=== PATIENT | female | born 1940 | race Caucasian/White ===

== ENCOUNTER 2024-12-09 19:06 | Inpatient (IN) | payer OTHER, SELFPAY ==
[2024-12-09] VITALS (19 sets, daily range): BP systolic 100–168; BP diastolic 58–96; BMI 15.0
[2024-12-09 11:12] LABS: % Basophils 0.4 % (0-2); % Eosinophils 1.1 % (0-6); % Immature Granulocytes 0.2 % (0-0.5); % Lymphocytes 9.4 % (20.5-51.1); % Monocytes 6.5 % (1.7-9.3); % Neutrophils 82.4 % (42.2-75.2); Absolute Eosinophils 0.1 10^3/uL (0-0.7); Absolute Lymphocytes 0.9 10^3/uL (1.2-3.4); Absolute Monocytes 0.6 10^3/uL (0.1-0.6); Absolute Neutrophils 7.9 10^3/uL (1.4-6.5); Hematocrit 41.2 % (37.0-47.0); Hemoglobin 12.8 g/dL (12.0-16.0); Mean Corp Hgb Conc. 31.1 g/dL (33.0-37.0); Mean Corpuscular Hgb 27.5 pg (27.0-31.0); Mean Corpuscular Volume 88.4 fL (81.0-99.0); Mean Platelet Volume 9.9 fL (7.4-10.4); Nucleated Red Blood Cells % 0 %; Platelet Count 276 10^3/uL (130-400); Red Blood Cell Count 4.66 10^6/uL (4.20-5.40); Red Cell Dist. Width 14.6 % (11.5-14.5); White Blood Cell Count 9.6 10^3/uL (4.8-10.8)
--- NOTE | 2024-12-09 11:20 | ED.GENMED ---
History of Present Illness
General
Chief Complaint: Weakness
Source: patient
Exam Limitations: none
Time Seen by Provider: 12/09/24 10:55
Nursing documentation reviewed up to this point in time: agreed with
Past History
Past History
ED Past Medical History: CHF, COPD, HTN, Hypercholesterolemia, Renal failure (Chronic kidney disease stage IIIa), Psychiatric (Depression) and Other (Glaucoma, chronic back pain, chronic transaminitis, Eczema, Vit- D def, )
ED Past Surgical History: Other (Skin grafts, )
Social History
Tobacco: Former smoker
Alcohol: None
Drug: None
Personal:
Living: alone
Employment: Retired
Family History
Family History: Other (Noncontributory)
Course
Orders/Labs/Results
Orders:
Orders
12/09/24 11:01
Electrocardiogram (*1) Urgent
Reason for Study: Other
Other Reason for Exam: Respiratory Distress
EKG- Treatment ONCE
12/09/24 11:03
COVID-19 Antigen Urgent
Source: Nasal Swab
Complete Blood Count/With Diff Urgent
Comprehensive Metabolic Panel Urgent
Influenza A+B Rapid Molecular Urgent
SEE Source: Nasal Swab
Specimen Description:
12/09/24 11:16
NT-proBNP Urgent
Troponin I Urgent
Abnormal Lab Results
12/09/24
11:03
MCHC 31.1 L g/dL
(33.0-37.0)
RDW 14.6 H %
(11.5-14.5)
Absolute Neuts (auto) 7.9 H 10^3/uL
(1.4-6.5)
Absolute Lymphs (auto) 0.9 L 10^3/uL
(1.2-3.4)
Neutrophils % 82.4 H %
(42.2-75.2)
Lymphocytes % 9.4 L %
(20.5-51.1)
12/09/24 11:03
Vital Signs
Initial and Last Documented VS:
Initial Vital Signs
Temp Pulse Resp BP Pulse Ox
98.5 F 95 32 154/82 91
12/09/24 10:52 12/09/24 10:52 12/09/24 10:52 12/09/24 10:52 12/09/24 10:52
Last Documented Vital Signs
Temp Pulse Resp BP Pulse Ox
98.5 F 95 32 154/82 93
12/09/24 10:52 12/09/24 10:52 12/09/24 10:52 12/09/24 10:52 12/09/24 10:52
ED Attending Note
-
Portions of this chart may have been created with voice recognition software.� Occasional wrong word or��sound alike� substitutions may have occurred due to the inherent limitations of voice recognition software.
Discharge Plan
Departure
Prescriptions:
No Action
tramadol 50 MG tablet
1 tab PO Q8H PRN (Reason: moderate pain)
acetaminophen [Tylenol Extra Strength] 500 MG tablet
500 mg PO Q6H PRN (Reason: MILD PAIN)
Prolia 60 MG/ML syringe
60 mg SQ Q6M
Patient Comments:
04/27/21; ss- pt last received in February 2021.
atorvastatin 10 MG tablet
10 mg PO QPM
brimonidine [Alphagan P] 1 DROP drops
1 drp BOTH EYES BID
cholecalciferol (vitamin D3) 1,000 UNITS tablet
1,000 units PO DAILY
nitroglycerin 0.4 MG tablet, sublingual
0.4 mg sublingual [id number] PRN (Reason: CP, SOB) Qty: 10 0RF
metoprolol succinate 25 MG tablet extended release 24 hr
25 mg PO BID Qty: 60 0RF
potassium chloride 10 MEQ capsule, extended release
10 meq PO MOFR
furosemide 20 MG tablet
20 mg PO MOFR
timolol maleate 0.5 % drops
1 drp BOTH EYES BID
travoprost 0.004 % Drops
1 drp BOTH EYES HS
ipratropium bromide 42 mcg (0.06 %) spray,non-aerosol
1 spray INTRANASAL DAILY
calcium citrate-vitamin D3 250 mg-5 mcg (200 unit) Tablet
1 tab PO BID
hydralazine 25 mg tablet
25 mg PO TID PRN (Reason: sbp>160)
Referrals:
UNKNOWN - PT DOES,NOT KNOW [Family Provider] -
Interventions
Interventions:
*Risk Screen - Suicide Last Done: 12/09/24 10:52
*General Assessment Last Done: 12/09/24 10:52
*Neglect/Abuse Screening Last Done: 12/09/24 10:52
*ED- Fall Risk Assessment Last Done: 12/09/24 10:52
ED- Pulmonary Assessment Last Done: 12/09/24 10:52
Discharge Date and Time
Print Language: FRISIAN
[2024-12-09 11:25] LABS: ALT (SGPT) 22 U/L (0-35); AST (SGOT) 34 U/L (14-36); Albumin 3.8 g/dl (3.5-5.0); Alkaline Phosphatase 113 U/L (38-126); Blood Urea Nitrogen 36 mg/dl (7-17); Calcium 9.5 mg/dl (8.4-10.2); Carbon Dioxide 28 mmol/L (22-30); Chloride 105 mmol/L (98-107); Estimated Creatinine Clearance 26 ml/min; Glucose 98 mg/dl (70-99); Potassium 4.1 mmol/L (3.5-5.1); Sodium 143 mmol/L (135-145); Total Protein 7.9 g/dl (6.3-8.2); eGFR > 60.00
[2024-12-09 11:27] LABS: COVID-19 Antigen Negative (Negative)
[2024-12-09 12:06] LABS: NT-proBNP 3800 pg/ml; Troponin I < 0.012 ng/ml
--- NOTE | 2024-12-09 12:10 | ED.GENMED ---
History of Present Illness
General
Chief Complaint: Weakness
Source: patient
Exam Limitations: none
Time Seen by Provider: 12/09/24 10:55
History of Present Illness
History of Present Illness:
84-year-old female presents from home where she lives by herself with complaints of generalized weakness and progressive decline worsening over the past week. She saw her family doctor yesterday and were advised to come here for dehydration. She
notes appetite she has not had anything to eat in several days. She states she is losing weight. No fever. She does note some shortness of breath. No other complaints at this time
Past History
Past History
ED Past Medical History: CHF, COPD, HTN, Hypercholesterolemia, Renal failure (Chronic kidney disease stage IIIa), Psychiatric (Depression) and Other (Glaucoma, chronic back pain, chronic transaminitis, Eczema, Vit- D def, )
ED Past Surgical History: Other (Skin grafts, )
Social History
Tobacco: Former smoker
Alcohol: None
Drug: None
Personal:
Living: alone
Employment: Retired
Family History
Family History: Other (Noncontributory)
Phy Exam
Physical Exam
Physical Exam:
General: Cachectic appearing female no acute respiratory distress
HEENT: Normocephalic atraumatic mucosa dry
Heart: Regular rate and rhythm
Lungs: Clear no wheeze
Abdomen is soft nontender
Extremities: No cyanosis
Course
Orders/Labs/Results
Orders:
Orders
12/09/24 11:01
Electrocardiogram (*1) Urgent
Reason for Study: Other
Other Reason for Exam: Respiratory Distress
EKG- Treatment ONCE
12/09/24 11:03
COVID-19 Antigen Urgent
Source: Nasal Swab
Complete Blood Count/With Diff Urgent
Comprehensive Metabolic Panel Urgent
Influenza A+B Rapid Molecular Urgent
SEE Source: Nasal Swab
Specimen Description:
12/09/24 11:36
NT-proBNP Urgent
Troponin I Urgent
12/09/24 12:07
0.9% Sodium Chloride 1000 ml [Nss] 1,000 ml IV BOLUS
CR Chest - 2 Views Urgent
Comment:
Reason For Exam: weakness
12/09/24 14:45
Urinalysis Reflex To Culture Urgent
Date Specimen was Collected: 12/09/24
Time Specimen was Collected: 14:43
Urine Microscopic Reflex Cult Urgent
Urine Culture Urgent
SEE Source: U
Specimen Description:
Date Specimen was Collected: 12/09/24
Time Specimen was Collected: 14:43
Abnormal Lab Results
12/09/24 12/09/24
11:03 14:45
MCHC 31.1 L g/dL
(33.0-37.0)
RDW 14.6 H %
(11.5-14.5)
Absolute Neuts (auto) 7.9 H 10^3/uL
(1.4-6.5)
Absolute Lymphs (auto) 0.9 L 10^3/uL
(1.2-3.4)
Neutrophils % 82.4 H %
(42.2-75.2)
Lymphocytes % 9.4 L %
(20.5-51.1)
BUN 36 H mg/dl
(7-17)
Urine Ketones 2+ A
(Negative)
Leukocyte Esterase Rfl 2+ A
(Negative)
Urine WBC (Reflex) 16-20 A /HPF
(0-5)
Urine Albumin (Reflex) 2+ A
(Neg - Trace)
12/09/24 11:03
12/09/24 11:03
Vital Signs
Initial and Last Documented VS:
Initial Vital Signs
Temp Pulse Resp BP Pulse Ox
98.5 F 95 32 154/82 91
12/09/24 10:52 12/09/24 10:52 12/09/24 10:52 12/09/24 10:52 12/09/24 10:52
Last Documented Vital Signs
Temp Pulse Resp BP Pulse Ox
98.5 F 89 19 168/89 95
12/09/24 10:52 12/09/24 15:15 12/09/24 15:15 12/09/24 15:00 12/09/24 14:45
MDM/Problems Addressed
Differential Diagnosis Includes:
Generalized weakness. Differential could include anemia versus electrolyte abnormality versus dehydration versus infectious source such as COVID flu pneumonia or UTI.
EKG shows sinus rhythm with PVCs. Will check labs. Fluids ordered. Chest x-ray urinalysis pending.
*Critical Care Note
Total Time (30-74mins, 75-104mins- exclusive of procedures): Not Applicable
Update Note
Update Note:
Daughter now in room. She describes patient has declined over the past week. She is lost 5 pounds. She is cachectic. She looks dehydrated on exam noted to be hypoxic in the room now on 2 L. X-ray read as potential early CHF. May benefit from
PT evaluation case management potential placement.
ED Attending Note
-
Portions of this chart may have been created with voice recognition software.� Occasional wrong word or��sound alike� substitutions may have occurred due to the inherent limitations of voice recognition software.
Discharge Plan
Departure
Patient Disposition: Admit
Date of Disposition: 12/09/24
Time of Disposition: 15:40
Presentation/result/management discussed w/ accepting MD/DO: Hospitalist
Discharge Problem:
Hypoxia, Acute dehydration
Prescriptions:
No Action
tramadol 50 MG tablet
1 tab PO Q8H PRN (Reason: moderate pain)
acetaminophen [Tylenol Extra Strength] 500 MG tablet
500 mg PO Q6H PRN (Reason: MILD PAIN)
Prolia 60 MG/ML syringe
60 mg SQ Q6M
Patient Comments:
04/27/21; ss- pt last received in February 2021.
atorvastatin 10 MG tablet
10 mg PO QPM
brimonidine [Alphagan P] 1 DROP drops
1 drp BOTH EYES BID
cholecalciferol (vitamin D3) 1,000 UNITS tablet
1,000 units PO DAILY
nitroglycerin 0.4 MG tablet, sublingual
0.4 mg sublingual [id number] PRN (Reason: CP, SOB) Qty: 10 0RF
metoprolol succinate 25 MG tablet extended release 24 hr
25 mg PO BID Qty: 60 0RF
potassium chloride 10 MEQ capsule, extended release
10 meq PO MOFR
furosemide 20 MG tablet
20 mg PO MOFR
timolol maleate 0.5 % drops
1 drp BOTH EYES BID
travoprost 0.004 % Drops
1 drp BOTH EYES HS
ipratropium bromide 42 mcg (0.06 %) spray,non-aerosol
1 spray INTRANASAL DAILY
calcium citrate-vitamin D3 250 mg-5 mcg (200 unit) Tablet
1 tab PO BID
hydralazine 25 mg tablet
25 mg PO TID PRN (Reason: sbp>160)
Referrals:
UNKNOWN - PT DOES,NOT KNOW [Family Provider] -
Interventions
Interventions:
*Risk Screen - Suicide Last Done: 12/09/24 10:52
*General Assessment Last Done: 12/09/24 10:52
*Neglect/Abuse Screening Last Done: 12/09/24 10:52
*ED- Fall Risk Assessment Last Done: 12/09/24 10:52
ED- Cardiac Assessment Last Done: 12/09/24 11:31
ED- Neurological Assessment Last Done: 12/09/24 11:31
ED- Pulmonary Assessment Last Done: 12/09/24 10:52
Discharge Date and Time
Print Language: CHINESE
[2024-12-09] MEDS: NSS 1000 IV (12:16)
[2024-12-09 14:55] LABS: Urine Albumin 2+ (Neg - Trace); Urine Bilirubin Negative (Negative); Urine Character Clear (Clear); Urine Color Yellow; Urine Glucose Negative (Negative); Urine Ketone 2+ (Negative); Urine Leukocyte 2+ (Negative); Urine Nitrite Negative (Negative); Urine Occult Blood Negative (Negative); Urine Urobilinogen Negative (Neg - 1+)
[2024-12-09 15:05] LABS: Urine Amorphous Seen; Urine Squamous Cell >30 /LPF (Few)
[2024-12-09 15:06] LABS: Urine White Cell 16-20 /HPF (0-5)
[2024-12-09 15:07] LABS: Urine Red Blood Cell 0-2 /HPF (0-2)
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
[2024-12-09] MEDS: MUCINEX 600 MG PO (20:50)
[2024-12-09] MEDS: ALPHAGAN 0.2% EYE DROPS 1 DROP BOTH EYES (20:50)
[2024-12-09] MEDS: LASIX 40 MG IV (20:50)
[2024-12-09] MEDS: TIMOPTIC 0.5% OPHTHALMIC SOLUTION 1 DROP BOTH EYES (20:50)
[2024-12-09] MEDS: TOPROL XL 25 MG PO (20:50)
[2024-12-09] MEDS: REFRESH EYE DROPS (PF) 1 DROPS BOTH EYES (20:50)
[2024-12-09 21:19] LABS: Troponin I < 0.012 ng/ml
[2024-12-09] MEDS: TYLENOL 1000 MG PO (21:22)
[2024-12-09] MEDS: XALATAN OPHTHALMIC SOLUTION 1 DROP BOTH EYES (21:23)
[2024-12-10] VITALS (7 sets, daily range): BP systolic 103–155; BP diastolic 54–72; PULSE 74; O2SAT 94; BMI 14.8
[2024-12-10 03:55] LABS: Troponin I 0.012 ng/ml
--- NOTE | 2024-12-10 07:30 | W.PN.HOSP.TC ---
Today's Communication/Plan
-
Appreciate cardiology assessment�they do not believe that this patient is suffering from CHF exacerbation and instead believe that this patient is presenting with symptoms secondary to failure to thrive. The patient's extensive history of COPD with
smoking for many years and history of using home oxygen but being noncompliant and suspicion to possible interstitial fibrosis or ILD. Pulmonology consulted for further evaluation. Home O2 eval ordered.
Assessment / Plan
Assessment / Plan
Assessment/Plan:
-HFrecEF:
EF previously 45% on echo 08/20/22 now 55-60%
Her most recent echocardiogram showed that her left ventricular ejection fraction has normalized and she has mild to moderate mitral regurgitation
Her BNP is 3800 - this is the lowest it has ever been based on prior lab work
Lasix has been discontinued and cardiology recommends that the patient not be discharged on any diuretics
Continue metoprolol succinate
Continue remainder of antihypertensive medication regimen
-Failure to thrive: Unresolved
Patient visibly cachectic on physical exam in the emergency department
BMI 15.0
Poor skin turgor
Dietitian consulted
-COPD: Monitoring
Continue ipratropium bromide
Dextromethorphan�guaifenesin
Pulmonology consulted -the patient has a significant history of COPD, unsure if there is any interstitial fibrosis
Patient is not compliant with her home oxygen and this may have played a role in her progressive weakness and fatigue -Home O2 eval ordered
-Hyperlipidemia: Stable
Continue home medications
-Glaucoma:
Continue home medications
-<del>Acute</del> <del>CHF</del> <del>exacerbation</del>: Ruled out
Patient has a history of CHF and hypertension
Labs unremarkable except for an elevated proBNP at 3800
Crackles heard throughout the lungs on auscultation
Chest x-ray conducted in the emergency department shows a mildly enlarged heart with mild cephalization bilaterally
EKG shows nonspecific ST�T changes but nothing acute
Trending troponin
Appreciate cardiology recommendations�by cardiology assessment they do not believe that the patient's presentation correlates with acute CHF and instead believes that this is likely consistent with failure to thrive. They recommended discontinuing
any diuretics and to encourage oral intake.
Echocardiogram - EF previously 45% on echo 08/20/22 now 55-60%
Low-sodium diet
CODE STATUS: DNR
DVT Prophylaxis: SCDs
Imaging:
-Chest x-ray conducted on 12/09/2024:
Mild cephalization concerning for developing CHF. Clinical and laboratory correlation recommended. New Cardiomegaly. Stable-EKG conducted on 12/09/2024:
SINUS RHYTHM WITH OCCASIONAL PREMATURE VENTRICULAR COMPLEXES
MINIMAL VOLTAGE CRITERIA FOR LVH, MAY BE NORMAL VARIANT ( [place] product )
ST and T WAVE ABNORMALITY, CONSIDER LATERAL ISCHEMIA
PROLONGED QT
ABNORMAL ECG
WHEN COMPARED WITH ECG OF 06-SEP-2022 16:34,
NO SIGNIFICANT CHANGE WAS FOUND
Procedures: N/A
Anticipated Discharge: 24 - 48 hours
Subjective/Interval History
-
Date of Service: December 10, 2024
Met with patient at the bedside. She is extremely uncomfortable following her CT procedure. She struggles to lay on her back on the board of the CT machine due to her ongoing cachectic habitus and pressure wounds.
Objective Data
-
Labs:
Laboratory Results
12/10/24
07:28
WBC 7.9
Hgb 12.7
Hct 41.8
Plt Count 265
Sodium 143
Potassium 3.8
Chloride 101
Carbon Dioxide 37 H
BUN 27 H
Creatinine 1.0
Glucose 85
Calcium 9.0
Total Bilirubin 0.9
AST 28
ALT 18
Alkaline Phosphatase 103
Vital Signs:
Vital Signs
Temp Pulse Resp BP Pulse Ox
97.8 F 77 20 130/60 85
12/10/24 11:00 12/10/24 11:00 12/10/24 11:00 12/10/24 11:00 12/10/24 13:43
I&O
12/09/24 12/10/24 12/11/24
06:59 06:59 06:59
Intake Total 0 / 0
Balance 0 / 0
Review of Systems
-
History Source: Patient
Constitutional: Reports Fatigue and Weakness
EENT: Reports No Symptoms Reported
Respiratory: Reports Other (Short shallow breaths)
Cardiac: Reports No Symptoms
Abdomen/GI: Reports No Symptoms
Breast: Reports No Symptoms
Genitourinary: Reports No Symptoms
Musculoskeletal: Reports Muscle Pain and Muscle Stiffness
Skin: Reports No Symptoms
Neuro: Reports No Symptoms
Endocrine: Reports No Symptoms
Hematologic / Lymphatic: Reports No Symptoms
Allergy / Immunology: Reports No Symptoms
Physical Exam
-
General: Well Developed, No Apparent Distress, Pain, Appears Chronically Ill and Cachectic
HEENT: Normocephalic and Atraumatic
Respiratory: Decreased Breath Sounds (Decreased breath sounds bilaterally in the lung bases)
Cardiac: S1/S2; Negative Murmur or Rub
Breast: Deferred by me
GI: Soft, Nontender, Nondistended and Normal Bowel Sounds
Rectal: Deferred by Provider
Genito-urinary: Deferred by me
Musculoskeletal: No Clubbing, No Cyanosis and No Edema
Skin: Warm, Dry and Ulcers (Sacral/coccyx stage 2 pressure injury, Bilateral heel stage 1 pressure injury.); Negative Rash
Neuro: Awake, Alert, Oriented and AO x 3
Psych: Calm
[2024-12-10 07:54] LABS: Hematocrit 41.8 % (37.0-47.0); Hemoglobin 12.7 g/dL (12.0-16.0); Mean Corp Hgb Conc. 30.4 g/dL (33.0-37.0); Mean Corpuscular Hgb 27.5 pg (27.0-31.0); Mean Corpuscular Volume 90.5 fL (81.0-99.0); Platelet Count 265 10^3/uL (130-400); Red Blood Cell Count 4.62 10^6/uL (4.20-5.40); Red Cell Dist. Width 14.6 % (11.5-14.5); White Blood Cell Count 7.9 10^3/uL (4.8-10.8)
[2024-12-10 08:12] LABS: Troponin I 0.014 ng/ml
[2024-12-10 08:29] LABS: ALT (SGPT) 18 U/L (0-35); AST (SGOT) 28 U/L (14-36); Albumin 3.4 g/dl (3.5-5.0); Alkaline Phosphatase 103 U/L (38-126); Blood Urea Nitrogen 27 mg/dl (7-17); Carbon Dioxide 37 mmol/L (22-30); Chloride 101 mmol/L (98-107); Estimated Creatinine Clearance 23 ml/min; Glucose 85 mg/dl (70-99); Potassium 3.8 mmol/L (3.5-5.1); Sodium 143 mmol/L (135-145); Total Bilirubin 0.9 mg/dl (0.2-1.3); Total Protein 7.3 g/dl (6.3-8.2); eGFR 55.55
[2024-12-10 08:55] LABS: TSH Reflex To Free T4 2.86 uIU/ml (0.47-4.68)
[2024-12-10] MEDS: TIMOPTIC 0.5% OPHTHALMIC SOLUTION 1 DROP BOTH EYES ×2 (09:23→20:30)
[2024-12-10] MEDS: ALPHAGAN 0.2% EYE DROPS 1 DROP BOTH EYES ×2 (09:24→20:30)
[2024-12-10] MEDS: REFRESH EYE DROPS (PF) 1 DROPS BOTH EYES ×2 (09:25→20:30)
[2024-12-10] MEDS: LASIX 40 MG IV (09:26)
[2024-12-10] MEDS: DITROPAN 2.5 MG PO (09:28)
--- NOTE | 2024-12-10 09:29 | CON.CAR ---
Consultation
Consultation Request
Date/Time Consultation Requested: 12/10/2024
Date/Time Consultation Performed: 12/10/2024
Requesting Provider: Dr. Becker
Performing Provider: Dr. Vasquez
Reason for Consultation: CHF
Medical History
-
Chief Complaint: Weakness
History of Present Illness:
84-year-old female (previously known to Dr. 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
frequent PVCs, significant DJD with significant kyphosis/ambulatory dysfunction (walker assistance), cachexia, previous right pneumothorax after mechanical fall (03/10/23) presenting with weakness. Patient has been having decreased oral intake over
the past several weeks; Lasix was discontinued earlier this week by her PCP in response. Patient denies chest pain, shortness of breath, or palpitations.
Past Medical History
Past Medical History: Arrhythmias (PVCs), CHF (HFrEF 40%), HTN (severe labile HTN (recent BP has been low in office visit 90/50)), Valvular Disease (moderate MR) and Other (CKD)
Social History
Tobacco: Former Smoker
Alcohol: None
Personal: Single
Living: Alone
Family History
Family History: Reviewed & Not Pertinent
Allergies / Home Medications
Allergy/AdvReac Type Severity Reaction Status Date / Time
No Known Allergies Allergy Verified 12/09/24 10:52
�Medication �Instructions �Recorded �Confirmed �Type
acetaminophen 500 mg tablet 1,000 mg PO Q6HPRN PRN MILD PAIN 06/19/20 12/09/24 History
(Tylenol Extra Strength)
atorvastatin 10 mg tablet 10 mg PO QPM High cholesterol 06/23/20 12/09/24 History
denosumab 60 mg/mL subcutaneous 60 mg SQ [id number] bone health 06/23/20 12/09/24 History
syringe (Prolia)
cholecalciferol (vitamin D3) 25 1,000 units PO QPM bone health 04/27/21 12/09/24 History
mcg (1,000 unit) tablet
nitroglycerin 0.4 mg sublingual 0.4 mg sublingual [id number] PRN CP, 04/29/21 12/09/24 Rx
tablet SOB #10 tabs
metoprolol succinate 25 mg 25 mg PO BID #60 tabs 10/11/21 12/09/24 Rx
tablet,extended release 24 hr
timolol maleate 0.5 % eye drops 1 drp BOTH EYES BID Eye condition 08/20/22 12/09/24 History
travoprost 0.004 % eye drops 1 drp BOTH EYES HS Eye Condition 03/09/23 12/09/24 History
hydralazine 25 mg tablet 25 mg PO TIDPRN PRN sbp>160 03/10/23 12/09/24 History
ipratropium bromide 42 mcg (0.06 1 spray intranasal Q4HPRN PRN 03/10/23 12/09/24 History
%) nasal spray runny nose
brimonidine 0.2 % eye drops 1 drp BOTH EYES BID 12/09/24 12/09/24 History
dextromethorphan-guaifenesin 30 1 tab PO Q12H 12/09/24 12/09/24 History
mg-600 mg tablet extended
[id number] hr (Mucinex DM)
oxybutynin chloride 5 mg 5 mg PO DAILY@1000 12/09/24 12/09/24 History
tablet,extended release 24 hr
propylene glycol (PF) 0.6 % eye 1 drp ophthalmic (eye) BID 12/09/24 12/09/24 History
drops (Systane Complete PF)
Review of Systems
-
History Source: Patient
All other systems: Negative unless noted
Constitutional: Weight Loss and Fatigue
Musculoskeletal: Joint Pain
Physical Exam
Vital Signs
Temp Pulse Resp BP Pulse Ox
97.7 F 77 16 132/65 100
12/10/24 07:30 12/10/24 07:30 12/10/24 07:30 12/10/24 07:30 12/10/24 07:30
Lab Results
12/10/24 07:28
12/10/24 07:28
Troponin I 0.014 ng/ml 12/10/24 07:28
Zok-D-Lpojbnndxsh Pept 3800 pg/ml 12/09/24 11:36
Physical Exam
General: No Apparent Distress and Other (Cachectic appearing)
Respiratory: Rhonchi (Right base)
Cardiac: S1/S2 and Murmur (Soft 2/6 systolic murmur)
Breast: Deferred by me
GI: Soft
Rectal: Deferred by Provider
Musculoskeletal: No Edema
Skin: Warm and Dry
Neuro: AO x 3
Psych: Calm
Impression / Plan
-
84-year-old female (previously known to Dr. 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
frequent PVCs, significant DJD with significant kyphosis/ambulatory dysfunction (walker assistance), cachexia, previous right pneumothorax after mechanical fall (03/10/23) presenting with weakness. Patient has been having decreased oral intake over
the past several weeks; Lasix was discontinued earlier this week by her PCP in response. Patient denies chest pain, shortness of breath, or palpitations.
Weakness:
-Patient's clinical presentation appears to be consistent with failure to thrive.
-Will discontinue any diuretics; encourage PO intake.
-Management by primary team.
HFrecEF (EF previously 45% on echo 08/20/22 now 55-60%):
- Patient's echocardiogram today revealed that her LVEF has now normalized; mild to moderate MR.
- Her cardiac BNP is 3800, but this is the lowest that it is ever been.
- Will discontinue Lasix; should not be discharged on any diuretics.
- GDMT has been limited (labile blood pressure; patient did not tolerate Jardiance/SGLT2 inhibitor secondary to significant weight loss).
- Continue metoprolol succinate.
Severe labile HTN/BP:
-Blood pressure currently appears to be fairly controlled/relatively stable.
-Continue current antihypertensive medication regimen.
Mitral regurgitation - mild to moderate on echo (previously moderate).
-Stable; will continue to monitor as outpatient.
Mild :
-Stable.
Dyslipidemia - stable on statin.
Disposition: Cardiology will remain available on an as-needed basis; can follow-up with Cardiology as an outpatient.
Data Reviewed
-
EKG: Tracing Personally Visualized and interpreted (Sinus rhythm)
Medical Tests (Nuc Med, Echo etc): Image Personally Visualized and interpreted (Echocardiogram 12/10/2024: LVEF 55-60%; mild to moderate MR, mild .)
Labs: Labs Reviewed by me
[2024-12-10] MEDS: MUCINEX PO ×2 (09:30→09:31)
[2024-12-10] MEDS: TOPROL XL 25 MG PO (09:31)
--- NOTE | 2024-12-10 12:05 | WOUNDNOTE ---
[facility] RN note: Patient admitted with CHF, failure to thrive. Patient lives by herself.
See H&P for complete history.
PMH: CHF, COPD, hypertension, hyperlipidemia, CKD stage III, depression, glaucoma, and back pain.
Wound Location and type/assessment: Patient admitted with: Sacral/coccyx stage 2 pressure injury with large area of dull red skin with callus on sacrum suspect may evolve to a DTI. R ischial scabbed pressure injury, stage 2 vs deeper? L ischium
dull redness and scarred skin. Bilateral heel stage 1 pressure injury. R lateral 5th MTH slow to blas dark red and intact stage 1 pressure injury. Blanchable L shoulder, L posterior hip. R spine mild red and intact. Perineal MASD.
Appetite: poor. +Cachexia.
Pressure redistribution devices in place: Waffle air overlay mattress. Patient cannot turn herself in bed. She bends her knee frequently.
Plan: Sacral shaped silicone border foam applied to sacrum and spine. Silicone border foam applied to bilateral ischium, L posterior hip and L shoulder. Heel foam dressings changed. Patient turned to R semi side lying position with help from RN
Student Leah.
Confirm orders with Dr. Becker and Dr. Bautista and updated RN Kristyn.
Care plan to be updated and will follow as needed.
Note to case management of equipment requested for discharge: Air mattress.
Recommend follow up at wound care center upon discharge.
[2024-12-10] MEDS: ROBITUSSIN 100 MG PO (13:44)
--- NOTE | 2024-12-10 14:46 | CM ---
Addendum entered by Tamiko Glasgow 12/10/24 16:07:
CM spoke with daughter, confirms daughter is POA, will bring documents when visits patient. Daughter will discuss SNF with patient, unsure if patient will be agreeable. Daughter reports she is unable to live/stay with patient, patient previously had
caregivers through [facility], will not continue to work with patient. Daughter requesting medical update, TT to Physician.
Original Note:
CM reviewed chart, consult received for placement. Patient seen bedside, initial assessment completed. Patient resides independently in a one story condo on the third floor, elevator access. Patient currently on O2, does no wear home O2. Patient
reports having a walker, rollator, cane, wheelchair at home. Patient reports VN in past, [facility] in past, patient is not agreeable to SNF. Patient confirms PCP Stefan Temple, [facility]. Call to patients Nancy corona to
discuss SNF recommendation-([phone]), unable to talk at this time, will call CM back. CM will continue to follow for all discharge planning needs.
Plan; patient declining SNF, awaiting return call from daughter.
--- NOTE | 2024-12-10 15:48 | W.PN.UPDATE ---
Update Note
Progress Note Update
Seen and examined by me independently in collaboration with the medical staff credentialing coordinator.
Lab data and imaging data reviewed.
Addendum as below :
Patient denying any shortness of breath at rest. Denies any chest pain.
Looks comfortable. Hemodynamically stable. Oxygenating well on nasal cannula. Hard to evaluate JVD.
She has bilateral crackles especially worse in the right side all the way up to the upper zone.
Abdomen soft and cachectic
Echo noted with improved EF. Looking back at prior labs BNP is better than previous. Appreciate cardiology input. [place] CHF less likely. Lasix on hold.
She has history of COPD and has significant auscultatory findings along with interstitial prominence on the chest x-ray. Unclear stage of COPD or if she has any interstitial fibrosis. Will consult pulmonary in AM.
She was not compliant with oxygen use which probably played a role in her progressive weakness and fatigue. No major metabolic disturbance to account for her fatigue or weakness.
Await CT of the abdomen pelvis report. She has been having weight loss.
[2024-12-10] MEDS: ROBITUSSIN PO ×2 (17:22→22:15)
[2024-12-10] MEDS: LIPITOR PO (17:22)
[2024-12-10] MEDS: VITAMIN D3 (cholecalciferol) PO (17:22)
[2024-12-10] MEDS: DITROPAN PO (20:30)
[2024-12-10] MEDS: TOPROL XL PO (20:30)
[2024-12-10] MEDS: XALATAN OPHTHALMIC SOLUTION 1 DROP BOTH EYES (21:04)
[2024-12-11 03:40] VITALS: BP 164/88
[2024-12-11 04:49] VITALS: BP 164/88
[2024-12-11 05:59] VITALS: BMI 15.0
--- NOTE | 2024-12-11 07:30 | W.PN.HOSP.TC ---
Addendum entered and electronically signed by Angelo Becker MD 12/11/24 15:26:
Seen and examined by me independently in collaboration with the ophthalmic medical assistant.
Lab data and imaging data reviewed.
Addendum as below :
Since admission patient still feels weak, fatigued and tired. Oxygen is not particularly helping her.
Denies any nausea but still has poor appetite and picking on food.
Denies shortness of breath at rest. No chest pain. No cough.
No respiratory distress at rest.
Heart sound S1 plus S2 heard regular.
Chest she has still has coarse crackles in the right lung up to the mid zone and some in the left base. No wheeze.
Abdomen cachectic but no tenderness.
Lower extremity edema.
No clear evidence of heart failure. Echo reviewed. Appreciate cardiology input. Diuretics on hold.
Consulted pulmonary because of acute hypoxic respiratory failure and coarse crackles significant in the right lung and also interstitial changes on the plain x-ray. Appreciate input.
Patient with history of prior small pneumothorax and pulmonary nodules and had needed oxygen which she has refused to use at home.
She has been having poor oral intake for years and has lost significant amount of weight over the years. She has declined artificial nutrition.
Today she was wishing to the nursing staff.
Patient says that she does not want to pursue investigations and be provided and poked up it is not going to make her situation better. She has declined blood test today.
Noncontrast CT A/P shows no acute pathology.
She lives alone and possibly failing to thrive at home.
Pulmonary also not recommending any additional evaluation that would change her quality of life. They felt hospice appropriate and discussed with the daughter as well.
Continue with current supportive care and oxygen. Follow therapy evaluations.
With failure to thrive,poor moblity and nutritional deficiency recommended to consider alternative level of care in a rehab but patient is not keen.
DW daughter on phone this afternoon -patient has been declining with her nutrition over the years. They had discussed about artificial nutrition including a PEG tube which was a no for the patient . In the last week she has expressed few times
about dying apparently.
I asked the daughter to explore with patient what her goals of care would be. She is open to have hospice discussion and see what it entitles.
Total time spent on today's encounter was 52 minutes which included time spent in counseling the patient/family regarding diagnosis and treatment plan as listed above, goals of care, and symptom management. Case was discussed with nursing staff,
specialists, and care coordinators/case management. All labs and imaging personally reviewed by me. Remainder the time spent in detailed review of previous records, lab data, imaging, and other medical provider documentation.
Original Note:
Today's Communication/Plan
-
Patient continues to struggle to have adequate oral intake. She refused her labs and medications this morning and expressed a desire that she is ready to . Patient requested a family meeting with hospice in order to determine the goals of
care. Consult for hospice placed.
Assessment / Plan
Assessment / Plan
Assessment/Plan:
-HFrecEF: Monitoring
EF previously 45% on echo 08/20/22 now 55-60%
Her most recent echocardiogram showed that her left ventricular ejection fraction has normalized and she has mild to moderate mitral regurgitation
Her BNP is 3800 - this is the lowest it has ever been based on prior lab work
Lasix has been discontinued and cardiology recommends that the patient not be discharged on any diuretics
Continue metoprolol succinate
Continue remainder of antihypertensive medication regimen
-Failure to thrive with severe protein/calorie malnutrition: Unresolved
Patient visibly cachectic on physical exam in the emergency department
BMI 15.0
Review of records shows remote weight of 80 pounds on 03/11/2023, 76.4 pounds on 02/13/24
Appearance of severe depression at the temples, orbital, buccal, clavicle seen
Severe loss of body fat
Severe loss of muscle mass
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
Food intake less than 50% of meal
Poor skin turgor
Dietitian consulted -they believe the patient is suffering from malnutrition and that the patient should be encouraged to intake more than 50% of her meal at each meal. The patient should also be encouraged to have small frequent meals and an
appetite stimulant.
-COPD: Monitoring
Continue ipratropium bromide
Dextromethorphan�guaifenesin
Pulmonology consulted -the patient has a significant history of COPD, unsure if there is any interstitial fibrosis
Patient is not compliant with her home oxygen and this may have played a role in her progressive weakness and fatigue -Home O2 eval ordered
-Hyperlipidemia: Stable
Continue home medications
-Glaucoma: Stable
Continue home medications
-<del>Acute</del> <del>CHF</del> <del>exacerbation</del>: Ruled out
Patient has a history of CHF and hypertension
Labs unremarkable except for an elevated proBNP at 3800
Crackles heard throughout the lungs on auscultation
Chest x-ray conducted in the emergency department shows a mildly enlarged heart with mild cephalization bilaterally
EKG shows nonspecific ST�T changes but nothing acute
Trending troponin
Appreciate cardiology recommendations�by cardiology assessment they do not believe that the patient's presentation correlates with acute CHF and instead believes that this is likely consistent with failure to thrive. They recommended discontinuing
any diuretics and to encourage oral intake.
Echocardiogram - EF previously 45% on echo 08/20/22 now 55-60%
Low-sodium diet
CODE STATUS: DNR
DVT Prophylaxis: SCDs
Imaging:
-Chest x-ray conducted on 12/09/2024:
Mild cephalization concerning for developing CHF. Clinical and laboratory correlation recommended. New Cardiomegaly. Stable-EKG conducted on 12/09/2024:
SINUS RHYTHM WITH OCCASIONAL PREMATURE VENTRICULAR COMPLEXES
MINIMAL VOLTAGE CRITERIA FOR LVH, MAY BE NORMAL VARIANT ( [place] product )
ST and T WAVE ABNORMALITY, CONSIDER LATERAL ISCHEMIA
PROLONGED QT
ABNORMAL ECG
WHEN COMPARED WITH ECG OF 06-SEP-2022 16:34,
NO SIGNIFICANT CHANGE WAS FOUND
Procedures: N/A
Anticipated Discharge: > 48 hours
Subjective/Interval History
-
Date of Service: December 11, 2024
Met with patient at the bedside. She is not happy with her hospital course and believes that she is being 'poked and prodded' without any substantial results. Support and encouragement provided at the bedside. Explanations for each test that we
have done was also provided. The patient expressed a desire that she was ready to . I continued to provide additional emotional support. Patient refused lab draws and medications today. She continues to struggle to have an adequate oral
intake and only had a tiny portion of her food. Patient desired a meeting with hospice and a consult has been placed.
Objective Data
-
Labs:
Patient refused lab draws
Vital Signs:
Vital Signs
Temp Pulse Resp BP Pulse Ox
97.8 F 80 16 110/66 95
12/11/24 11:43 12/11/24 11:43 12/11/24 11:43 12/11/24 11:43 12/11/24 11:43
I&O
12/10/24 12/11/24 12/12/24
06:59 06:59 06:59
Intake Total 0 / 0 480 / 480
Balance 0 / 0 480 / 480
Review of Systems
-
History Source: Patient
Constitutional: Reports Fatigue and Weakness
Respiratory: Reports Other (Shortness of breath)
Cardiac: Reports No Symptoms
Abdomen/GI: Reports No Symptoms
Breast: Reports No Symptoms
Genitourinary: Reports No Symptoms
Musculoskeletal: Reports No Symptoms
Skin: Reports Sores (On her sacrum)
Physical Exam
-
General: Well Developed and Cachectic
HEENT: Normocephalic, Atraumatic and Moist Mucous Membranes
Respiratory: Crackles
Cardiac: S1/S2
GI: Soft, Nontender, Nondistended and Normal Bowel Sounds
Rectal: Deferred by Provider
Genito-urinary: Deferred by me
Musculoskeletal: No Clubbing, No Cyanosis and No Edema
Skin: Decubitus Ulcers
Neuro: Awake, Alert, Oriented and AO x 3
Psych: Calm
[2024-12-11 08:25] VITALS: BP 167/78
--- NOTE | 2024-12-11 08:54 | PN.CDI ---
CDI
- -
CDI:
Physician Documentation Request
Admit Date: 12/09/24 19:06
Dear Doctor Raisa,
Clinical Indicators:
Patient admitted with failure to thrive.
12/10 note, 'RD able to see appearance of severe depression at temples, orbital, bucceal, clavicle during visit today. Due to these observations, pt meeting criteria for severe protein/calorie malnutrition (ASPEN/AND guidelines, chronic illness).'
Based on the above information and your assessment, which of the following most accurately represents the patient's nutritional status?
Severe Protein Calorie Malnutrition
Other (please specify)
Wren Criteria ([facility] Hospitalist 2017)
2 or more criteria must be present for either
non severe or severe malnutrition
Note that the criteria differs related to the
presence of an acute or chronic illness
Acute Illness Chronic Illness
Energy Intake Non Severe: <75% for >7 days Non Severe: <75% for >1 month
Severe: <50% for >5 days Severe: <75% for >1 month
Weight Loss Non Severe: 1-2% over 1 week Non Severe: 5% over 1 month
5% over 1 month 7.5% over 3 months
7.5% over 3 months 10% over 6 months
1 year N/A 20% over 1 year
Severe: >2% over 1 week Severe: >5% over 1 month
>5% over 1 month >7.5% over 3 months
>7.5% over 3 months >10% over 6 months
1 year N/A >20% over 1 year
Body Fat Non Severe: Mild Decrease Non Severe: Mild Loss
Severe: Moderate Decrease Severe: Severe Loss
Muscle Mass Non Severe: Mild Decrease Non Severe: Mild Loss
Severe: Moderate Decrease Severe: Severe Loss
Fluid Accumulation Non Severe: Mild Accumulation Non Severe: Mild Accumulation
Severe: Moderate to severe Severe: Moderate to severe
accumulation accumulation
Reduced Owner/Photographer Strength Non Severe: N/A Non Severe: N/A
Severe: Measurably reduced Severe: Measurably reduced
Additional criteria that can be used to Determine if Mild or Moderate Malnutrition (Merck Manual 2018)
Mild Moderate Severe
Albumin gm/dl <3.0 gm/dl <2.5 gm/dl <2.0 gm/dl
Pre Albumin mg/dl <15 gm/dl <10 mg/dl <5.0 mg/dl
BMI <18.5 <17 <16
Use of terms such as suspected, likely, concern for, or probable (associated with a specific diagnosis that is being evaluated, monitored, or treated as if it exists) are acceptable and can be coded in the inpatient setting, when documented at the
time of discharge.
Thank you,
Emilee Varma RN BSN
CDI Specialist
available via tiger text
Please use your independent medical judgment in providing your response.
--- NOTE | 2024-12-11 09:54 | CON.PUL ---
Consultation
Consultation Request
Date/Time Consultation Requested: 12/10/24
Date/Time Consultation Performed: 12/11/24
Performing Provider: Erna
Reason for Consultation: SOB
Medical History
-
History of Present Illness:
Patient is an 84-year-old female with previous history of CHF, COPD, chronic kidney disease, hypertension presenting from home to ER for generalized weakness, fatigue and progressive decline over the past week. She also notes no
appetite/decreased p.o. intake, weight loss (approximately 76 pounds), was sent in by her PCP due to concerns for dehydration. She was notably hypoxic on room air at 84%. She has oxygen at home but has declined using it. proBNP notably 3800,
chest x-ray ordered indicating CHF exacerbation. She otherwise has clinical symptoms consistent with failure to thrive.
Past Medical History
Past Medical History: Other (see list below)
Social History
Tobacco: Non-smoker
Alcohol: None
Drug: None
Family History
Family History: Reviewed & Not Pertinent
Allergies / Home Medications
Allergies
Allergy/AdvReac Type Severity Reaction Status Date / Time
No Known Allergies Allergy Verified 12/09/24 10:52
Home Medications
�Medication �Instructions �Recorded �Confirmed �Last Taken �Type
acetaminophen 500 mg tablet 1,000 mg PO Q6HPRN PRN MILD PAIN 06/19/20 12/09/24 12/09/24 History
(Tylenol Extra Strength)
atorvastatin 10 mg tablet 10 mg PO QPM High cholesterol 06/23/20 12/09/24 12/09/24 History
denosumab 60 mg/mL subcutaneous 60 mg SQ [id number] bone health 06/23/20 12/09/24 08/07/24 History
syringe (Prolia)
cholecalciferol (vitamin D3) 25 1,000 units PO QPM bone health 04/27/21 12/09/24 08/18/22 History
mcg (1,000 unit) tablet
nitroglycerin 0.4 mg sublingual 0.4 mg sublingual [id number] PRN CP, 04/29/21 12/09/24 Unknown Rx
tablet SOB #10 tabs
metoprolol succinate 25 mg 25 mg PO BID #60 tabs 10/11/21 12/09/24 08/18/22 Rx
tablet,extended release 24 hr
timolol maleate 0.5 % eye drops 1 drp BOTH EYES BID Eye condition 08/20/22 12/09/24 12/09/24 History
travoprost 0.004 % eye drops 1 drp BOTH EYES HS Eye Condition 03/09/23 12/09/24 12/08/24 History
hydralazine 25 mg tablet 25 mg PO TIDPRN PRN sbp>160 03/10/23 12/09/24 Unknown History
ipratropium bromide 42 mcg (0.06 1 spray intranasal Q4HPRN PRN 03/10/23 12/09/24 Unknown History
%) nasal spray runny nose
brimonidine 0.2 % eye drops 1 drp BOTH EYES BID Eye Condition 12/09/24 12/09/24 12/09/24 History
dextromethorphan-guaifenesin 30 1 tab PO Q12H Congestion 12/09/24 12/09/24 12/09/24 History
mg-600 mg tablet extended
[id number] hr (Mucinex DM)
oxybutynin chloride 5 mg 5 mg PO DAILY@1000 Urinary Issue 12/09/24 12/09/24 12/09/24 History
tablet,extended release 24 hr
propylene glycol (PF) 0.6 % eye 1 drp ophthalmic (eye) BID Eye 12/09/24 12/09/24 12/09/24 History
drops (Systane Complete PF) Condition
Review of Systems
-
History Source: Patient
All other systems: Negative unless noted
Vitals / Labs / Diagnostic Testing
Vital Signs
Temp Pulse Resp BP Pulse Ox
98.0 F 98 22 167/78 94
12/11/24 08:25 12/11/24 08:25 12/11/24 08:25 12/11/24 08:25 12/11/24 08:25
Microbiology
12/09/24 14:45 Urine Urine Culture - Final
12/09/24 11:03 Nasal Swab Influenza Types A & B (OBDULIA) - Final
Negative for Influenza A & B, NAAT
Negative results must be combined with clinical observations
and patient history.
Nucleic Acid Amplification test (NAAT)performed on the
FRS platform.
Diagnostic Testing:
Physical Exam
-
HEENT: Normocephalic, Anicteric and Moist Mucous Membranes
Cardiovascular: S1/S2 and Regular Rhythm
Respiratory: Clear and Non-Labored Respirations
GI: Soft, Non Distended and Non Tender
Neurology: Awake, Alert and Other (frail, weak, thin appearing)
Skin: Warm and Dry
General: Comfortable, Poor Appetite and Other (cachectic appearance, chronically ill appearing)
Assessment
-
Patient is an 84-year-old female with previous history of CHF, COPD, chronic kidney disease, hypertension presenting from home to ER for generalized weakness, fatigue and progressive decline over the past week. She also notes no
appetite/decreased p.o. intake, weight loss (approximately 76 pounds), was sent in by her PCP due to concerns for dehydration. She was notably hypoxic on room air at 84%. She has oxygen at home but has declined using it. proBNP notably 3800,
chest x-ray ordered indicating CHF exacerbation. She otherwise has clinical symptoms consistent with failure to thrive.
Acute hypoxemic respiratory failure
Decreased PO intake/weight loss >75 lbs
Severe protein calorie malnutrition, BMI 15
FTT
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
adm for R pneumothorax s/p fall s/p R chest tube placement 2022
Chronic systolic/diastolic CHF, NICM
History of small bilateral pulmonary nodules
HLD
CKD stage III
Glaucoma
Moderate MReg
Cervical kyphosis
Severe protein calorie malnutrition with cachexia
Osteoporosis
Depression
Chronic rhinorrhea
Former smoker
Plan:
Respiratory status is stable, initially placed on O2 in ER, now 93% on RA
Had refused her O2 for weeks at home, she does not wish to continue using it
Albuterol if needed-currently not bronchospastic, nebs added PRN
Radiographs reviewed-chest x-ray suggestive CHF
She has been stopped on her lasix due to concerns for dehydration
She has had poor PO intake for years, per daughter
Lost about >75 lbs in several years, current BMI 15
She has declined artificial means for nutrition
She wishes for hospice
I called daughter to discuss this and she expressed anxiety about her mother needing a lot of care and fears her being abandoned
I reassured her that speaking to hospice can still take place with full medical treatment but that she is limited on her care due to poor feeding issues and declining tubes
Daughter was open to speaking to hospice as well
I communicated my discussions with the care ream
DVT prophylaxis
Nutrition
I don't foresee any additional recommendations from my perspective that robyn change her QoL
Hospice consult placed, awaiting further decision making from family
We will follow up through the weekend by family request
Diagnostic Data
CXR 12/09/24- Mild cephalization concerning for developing CHF. Cardiomegaly. Stable
CXR 03-12 and 04-28: portable, no gross R pntx, improved R sided sc emphysema
CXRs 03-11, c/w 03. Initial film with R sided sc emphysema, R apex not seen due to head overimposition. Interim placement of R chest tube, no residual pneumothorax. Persistent R sc emphysema
CT AP 12/10/24- No acute pathology of the abdomen or pelvis. Too small to characterize hypodense hepatic lesion likely a small cyst or hemangioma. Tiny 1 mm nonobstructing left renal stone.
Severe atherosclerotic vascular disease. Moderate diverticulosis.
CT chest s/c 03-10-23 IMPRESSION:
1.).There is approximately 20% right-sided pneumothorax. There is moderate subcutaneous emphysema in the right hemithorax. There is acute fracture of the right third rib posteriorly
2). Small probably benign bilateral pulmonary nodules
3). Minimal right pleural effusion with atelectasis at the posterior right lung base
4). Mild atelectasis at the medial left lung base as well as at the lateral right middle lobe
ECHO 12/10/24- LV ejection fraction is 55-60%, by visual assessment. Normal regional wall motion. Normal right ventricular size and function. Mild to moderate mitral regurgitation. Mild aortic stenosis; peak/mean gradients are 12/6 mmHg, calculated
PALOMA is 1.5 cm2. Mild tricuspid regurgitation. Estimated pulmonary artery pressure of 25-30 mmHg. Compared to previous echo on 02/05/2023, LVEF has improved (previously 45-50%). Mild aortic stenosis is now noted.
TTE 02-05-23 CONCLUSIONS: Mildly reduced left trickle function estimate ejection fraction 45 to 50%. Moderate mitral regurgitation. Mild tricuspid regurgitation. Compared to previous report 08/20/2022 the findings are similar
Total time spent on this consultation/encounter __81__ minutes which includes review of history, physical exam, medications, laboratory data, personal review of imaging, extensive review of outpatient records, discussion with care team and
respiratory therapy.
[2024-12-11] MEDS: ALPHAGAN 0.2% EYE DROPS 1 DROP BOTH EYES ×2 (09:56→20:30)
[2024-12-11] MEDS: ROBITUSSIN PO ×4 (09:57→22:18)
[2024-12-11] MEDS: DITROPAN 2.5 MG PO (09:57)
[2024-12-11] MEDS: TOPROL XL 25 MG PO ×2 (09:58→20:30)
[2024-12-11] MEDS: REFRESH EYE DROPS (PF) 1 DROPS BOTH EYES ×2 (09:59→20:30)
[2024-12-11] MEDS: TIMOPTIC 0.5% OPHTHALMIC SOLUTION 1 DROP BOTH EYES ×2 (09:59→20:30)
[2024-12-11 11:43] VITALS: BP 110/66
--- NOTE | 2024-12-11 14:42 | HOSPNOTE ---
Addendum entered by Margarita Lux RN 12/11/24 14:45:
Daughter aware to let CM know if they wish for hospice services and CM will contact hospice nurse sql server consultant to help facilitate over the weekend.
Original Note:
Chantell met with patient and daughter via the phone. Explained hospice and the philosophy. Daughter is coming this evening to speak with patient. They will then make a decision to either do VN/Palliative or Hospice at home however they will also
need to set up 24h caregivers prior to as well. They will update us when they make a final decision. More information to follow.
--- NOTE | 2024-12-11 15:38 | CM ---
Pulmonary spoke with family .
Hospice ordered.
Spoke with Nancy bruno she confirmed she would like to speak with Hospice .
Yessi Pineda notified of referral .
PLAN awaiting family decision on hospice
[2024-12-11 16:00] VITALS: BP 142/88
[2024-12-11] MEDS: LIPITOR 10 MG PO (17:54)
[2024-12-11] MEDS: VITAMIN D3 (cholecalciferol) 25 MCG PO (17:54)
[2024-12-11] MEDS: XALATAN OPHTHALMIC SOLUTION 1 DROP BOTH EYES (21:00)
[2024-12-11] MEDS: DITROPAN PO (21:09)
[2024-12-11 23:22] VITALS: BP 140/68
[2024-12-12 06:00] VITALS: BMI 15.1
[2024-12-12 07:30] VITALS: BP 163/81
[2024-12-12] MEDS: ALPHAGAN 0.2% EYE DROPS 1 DROP BOTH EYES ×2 (07:40→20:20)
[2024-12-12] MEDS: TOPROL XL 25 MG PO ×2 (07:40→20:39)
[2024-12-12] MEDS: REFRESH EYE DROPS (PF) 1 DROPS BOTH EYES ×2 (07:40→20:38)
[2024-12-12] MEDS: TIMOPTIC 0.5% OPHTHALMIC SOLUTION 1 DROP BOTH EYES ×2 (07:40→20:20)
[2024-12-12] MEDS: DITROPAN 2.5 MG PO (07:40)
[2024-12-12] MEDS: ROBITUSSIN PO ×3 (07:44→16:36)
[2024-12-12 08:00] VITALS: BMI 15.1
--- NOTE | 2024-12-12 14:55 | W.PN.HOSP.TC ---
Today's Communication/Plan
-
cw current tx
DC planning
Assessment / Plan
Assessment / Plan
Assessment/Plan:
-Failure to thrive with severe protein/calorie malnutrition: Unresolved
Patient visibly cachectic on physical exam in the emergency department
BMI 15.0
Review of records shows remote weight of 80 pounds on 03/11/2023, 76.4 pounds on 02/13/24
Appearance of severe depression at the temples, orbital, buccal, clavicle seen
Severe loss of body fat
Severe loss of muscle mass
Patient has reduced home care liaison strength and overall reduced muscle strength -has repeatedly been unable to hold her drink and accidentally drops it on herself
Food intake less than 50% of meal
Poor skin turgor
Dietitian consulted -they believe the patient is suffering from malnutrition and that the patient should be encouraged to intake more than 50% of her meal at each meal. The patient should also be encouraged to have small frequent meals and an
appetite stimulant.
No obvious acute decompensation of chroinc dz or new dx
One element is possible - untreated chronic hypoxia
-COPD: no flare
- Possible chronic hypoxic respiratory insufficiency untreated
Continue ipratropium bromide
Dextromethorphan�guaifenesin
Pulmonology consulted -the patient has a significant history of COPD, unsure if there is any interstitial fibrosis
Patient is not compliant with her home oxygen and this may have played a role in her progressive weakness and fatigue -Home O2 eval ordered
-Hyperlipidemia: Stable
Continue home medications
-Glaucoma: Stable
Continue home medications
-<del>Acute</del> <del>CHF</del> <del>exacerbation</del>: Ruled out
Patient has a history of CHF and hypertension
Labs unremarkable except for an elevated proBNP at 3800
Crackles heard throughout the lungs on auscultation
Chest x-ray conducted in the emergency department shows a mildly enlarged heart with mild cephalization bilaterally
EKG shows nonspecific ST�T changes but nothing acute
Trending troponin
Appreciate cardiology recommendations�by cardiology assessment they do not believe that the patient's presentation correlates with acute CHF and instead believes that this is likely consistent with failure to thrive. They recommended discontinuing
any diuretics and to encourage oral intake.
Echocardiogram - EF previously 45% on echo 08/20/22 now 55-60%
Low-sodium diet
CODE STATUS: DNR
DVT Prophylaxis: SCDs
DW Daughter at bedside
Pt is agreeable to go to rehab
Imaging:
-Chest x-ray conducted on 12/09/2024:
Mild cephalization concerning for developing CHF. Clinical and laboratory correlation recommended. New Cardiomegaly. Stable-EKG conducted on 12/09/2024:
SINUS RHYTHM WITH OCCASIONAL PREMATURE VENTRICULAR COMPLEXES
MINIMAL VOLTAGE CRITERIA FOR LVH, MAY BE NORMAL VARIANT ( [place] product )
ST and T WAVE ABNORMALITY, CONSIDER LATERAL ISCHEMIA
PROLONGED QT
ABNORMAL ECG
WHEN COMPARED WITH ECG OF 06-SEP-2022 16:34,
NO SIGNIFICANT CHANGE WAS FOUND
Procedures: N/A
Anticipated Discharge: 24 - 48 hours
Subjective/Interval History
-
Date of Service: December 12, 2024
Feels ok today
Spirits are better
Wants to get better and be independent again
Denies SOB
Denies N/V
Objective Data
-
Vital Signs:
Vital Signs
Temp Pulse Resp BP Pulse Ox
98.7 F 88 18 118/62 97
12/12/24 07:30 12/12/24 07:40 12/12/24 07:30 12/12/24 07:40 12/12/24 08:00
I&O
12/11/24 12/12/24 12/13/24
06:59 06:59 07:59
Intake Total 480 / 480 480 / 480
Output Total 100 / 100
Balance 480 / 480 380 / 380
Physical Exam
-
General: Comfortable
Respiratory: Crackles (In right basal area today) and Non Labored Respirations; Negative Wheezes or Accessory Resp Muscle Use
Cardiac: Regular Rhythm and S1/S2; Negative Tachycardic
Neuro: AO x 3
Psych: Calm; Negative Confused
--- NOTE | 2024-12-12 15:08 | CM ---
CM reviewed chart, met with patient and daughter bedside, agreeable to SNF, requesting referrals to [facility] and [facility], daughters is a Pj. Patient will require insurance auth. CM will continue to follow for all discharge
planning needs.
Plan; SNF pending accepting facility, will require auth.
[2024-12-12 15:20] VITALS: BP 136/75
--- NOTE | 2024-12-12 17:11 | W.PN.PUL3 ---
Today's Communication / Plan
-
-Trial of Duoneb tid, has chronically dripping nose and ipratropium seems to help, having hard time with inhaler
-No further pulmonary work up recommended
-Place foam around O2 tubing as it digs behind her ears
-Goals of care discussions
Assessment
-
Patient is an 84-year-old female with previous history of CHF, COPD, chronic kidney disease, hypertension presenting from home to ER for generalized weakness, fatigue and progressive decline over the past week. She also notes no
appetite/decreased p.o. intake, weight loss (approximately 76 pounds), was sent in by her PCP due to concerns for dehydration. She was notably hypoxic on room air at 84%. She has oxygen at home but has declined using it. proBNP notably 3800,
chest x-ray ordered indicating CHF exacerbation. She otherwise has clinical symptoms consistent with failure to thrive.
Acute hypoxemic respiratory failure
Decreased PO intake/weight loss >75 lbs
Severe protein calorie malnutrition, BMI 15
FTT
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
adm for R pneumothorax s/p fall s/p R chest tube placement 2022
Chronic systolic/diastolic CHF, NICM
History of small bilateral pulmonary nodules
HLD
CKD stage III
Glaucoma
Moderate MReg
Cervical kyphosis
Severe protein calorie malnutrition with cachexia
Osteoporosis
Depression
Chronic rhinorrhea
Former smoker
Plan:
#Failure to thrive.
-CXR and CT from 2023 reviewed. No significant emphysema noted. Remote h/o smoking >40 years ago without any s/s of COPD/Emphysema in these years
-Do not suspect any significant obstructive airway disease
-Recommend supplemental O2 as needed. Patient reports that tubing digs behind her ear, so she refuses. Can use foam around tubing behind the ear
-Can use Duoneb as she has dripping nose and Ipratropium seems to help, has hard time co-ordinating inhalers. Will order Duoneb tid and see if it helps her
-Recommend no further pulmonary work up
Respiratory status is stable, initially placed on O2 in ER, now 93% on RA
Had refused her O2 for weeks at home, she does not wish to continue using it
Albuterol if needed-currently not bronchospastic, nebs added PRN
Radiographs reviewed-chest x-ray suggestive CHF
She has been stopped on her lasix due to concerns for dehydration
She has had poor PO intake for years, per daughter
Lost about >75 lbs in several years, current BMI 15
She has declined artificial means for nutrition
She wishes for hospice
I called daughter to discuss this and she expressed anxiety about her mother needing a lot of care and fears her being abandoned
I reassured her that speaking to hospice can still take place with full medical treatment but that she is limited on her care due to poor feeding issues and declining tubes
Daughter was open to speaking to hospice as well
I communicated my discussions with the care ream
DVT prophylaxis
Nutrition
I don't foresee any additional recommendations from my perspective that robyn change her QoL
Hospice consult placed, awaiting further decision making from family
We will follow up through the weekend by family request
Diagnostic Data
CXR 12/09/24- Mild cephalization concerning for developing CHF. Cardiomegaly. Stable
CXR 03-12 and 04-28: portable, no gross R pntx, improved R sided sc emphysema
CXRs -, c/w 03. Initial film with R sided sc emphysema, R apex not seen due to head overimposition. Interim placement of R chest tube, no residual pneumothorax. Persistent R sc emphysema
CT AP 12/10/24- No acute pathology of the abdomen or pelvis. Too small to characterize hypodense hepatic lesion likely a small cyst or hemangioma. Tiny 1 mm nonobstructing left renal stone.
Severe atherosclerotic vascular disease. Moderate diverticulosis.
CT chest s/c 03-10-23 IMPRESSION:
1.).There is approximately 20% right-sided pneumothorax. There is moderate subcutaneous emphysema in the right hemithorax. There is acute fracture of the right third rib posteriorly
2). Small probably benign bilateral pulmonary nodules
3). Minimal right pleural effusion with atelectasis at the posterior right lung base
4). Mild atelectasis at the medial left lung base as well as at the lateral right middle lobe
ECHO 12/10/24- LV ejection fraction is 55-60%, by visual assessment. Normal regional wall motion. Normal right ventricular size and function. Mild to moderate mitral regurgitation. Mild aortic stenosis; peak/mean gradients are 12/6 mmHg, calculated
PALOMA is 1.5 cm2. Mild tricuspid regurgitation. Estimated pulmonary artery pressure of 25-30 mmHg. Compared to previous echo on 02/05/2023, LVEF has improved (previously 45-50%). Mild aortic stenosis is now noted.
TTE 02-05-23 CONCLUSIONS: Mildly reduced left trickle function estimate ejection fraction 45 to 50%. Moderate mitral regurgitation. Mild tricuspid regurgitation. Compared to previous report 08/20/2022 the findings are similar
Total time spent on this consultation/encounter __81__ minutes which includes review of history, physical exam, medications, laboratory data, personal review of imaging, extensive review of outpatient records, discussion with care team and
respiratory therapy.
Subjective Data
-
Date of Service:
Date of Service: December 12, 2024
Subjective:
Comfortably sitting in bed, no distress
Objective Data
Data Reviewed
Vital Signs / I&O / Oxygen:
Vital Signs
Temp Pulse Resp BP Pulse Ox
98.3 F 79 18 136/75 97
12/12/24 15:20 12/12/24 15:20 12/12/24 15:20 12/12/24 15:20 12/12/24 15:20
Intake and Output
12/11/24 12/12/24 12/13/24
06:59 06:59 07:59
Intake Total 480 / 480 480 / 480
Output Total 100 / 100
Balance 480 / 480 380 / 380
SaO2 97
Nasal Cannula flow liters per 2
minute
Physical Exam
HEENT: Normocephalic and Other (bitemporal wasting , cachectic )
Cardiovascular: S1-S2
Respiratory: Clear
GI: Soft
Neurology: Awake
Skin: Warm
Labs/Micro/Reports
Lab Data
12/11/24 06:00
12/11/24 06:00
Microbiology
12/09/24 14:45 Urine Urine Culture - Final
[2024-12-12] MEDS: VITAMIN D3 (cholecalciferol) 25 MCG PO (17:20)
[2024-12-12] MEDS: LIPITOR 10 MG PO (17:20)
[2024-12-12] MEDS: DUONEB 3 ML INH (19:37)
[2024-12-12 20:23] VITALS: BP 149/83; BP 161/85; PULSE 55; PULSE 83
[2024-12-12] MEDS: ROBITUSSIN 100 MG PO (21:23)
[2024-12-12] MEDS: XALATAN OPHTHALMIC SOLUTION 1 DROP BOTH EYES (21:23)
[2024-12-12 23:45] VITALS: BP 112/65
[2024-12-13 06:00] VITALS: BMI 15.3
[2024-12-13 07:40] VITALS: BP 150/72
[2024-12-13] MEDS: TOPROL XL 25 MG PO ×2 (08:01→21:17)
[2024-12-13] MEDS: ALPHAGAN 0.2% EYE DROPS 1 DROP BOTH EYES ×2 (08:05→21:21)
[2024-12-13] MEDS: ROBITUSSIN PO ×4 (08:05→22:24)
[2024-12-13] MEDS: DUONEB 3 ML INH ×2 (08:21→12:55)
[2024-12-13] MEDS: TIMOPTIC 0.5% OPHTHALMIC SOLUTION 1 DROP BOTH EYES ×2 (08:33→21:41)
[2024-12-13] MEDS: REFRESH EYE DROPS (PF) 1 DROPS BOTH EYES ×2 (09:13→22:25)
[2024-12-13] MEDS: DITROPAN 2.5 MG PO (09:15)
--- NOTE | 2024-12-13 13:13 | W.PN.HOSP.TC ---
Today's Communication/Plan
-
DC to rehab when bed available.
Assessment / Plan
Assessment / Plan
Assessment/Plan:
-Failure to thrive with severe protein/calorie malnutrition: Unresolved
Patient visibly cachectic on physical exam in the emergency department
BMI 15.0
Review of records shows remote weight of 80 pounds on 03/11/2023, 76.4 pounds on 02/13/24
Appearance of severe depression at the temples, orbital, buccal, clavicle seen
Severe loss of body fat
Severe loss of muscle mass
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
Food intake less than 50% of meal
Poor skin turgor
Dietitian consulted -they believe the patient is suffering from malnutrition and that the patient should be encouraged to intake more than 50% of her meal at each meal. The patient should also be encouraged to have small frequent meals and an
appetite stimulant.
No obvious acute decompensation of chroinc dz or new dx
One element is possible - untreated chronic hypoxia
-COPD: no flare
- Possible chronic hypoxic respiratory insufficiency untreated
Continue ipratropium bromide
Dextromethorphan�guaifenesin
Pulmonology consulted -the patient has a significant history of COPD, unsure if there is any interstitial fibrosis
Patient is not compliant with her home oxygen and this may have played a role in her progressive weakness and fatigue
-Hyperlipidemia: Stable
Continue home medications
-Glaucoma: Stable
Continue home medications
-<del>Acute</del> <del>CHF</del> <del>exacerbation</del>: Ruled out
Patient has a history of CHF and hypertension
Labs unremarkable except for an elevated proBNP at 3800
Crackles heard throughout the lungs on auscultation
Chest x-ray conducted in the emergency department shows a mildly enlarged heart with mild cephalization bilaterally
EKG shows nonspecific ST�T changes but nothing acute
Trending troponin
Appreciate cardiology recommendations�by cardiology assessment they do not believe that the patient's presentation correlates with acute CHF and instead believes that this is likely consistent with failure to thrive. They recommended discontinuing
any diuretics and to encourage oral intake.
Echocardiogram - EF previously 45% on echo 08/20/22 now 55-60%
Low-sodium diet
CODE STATUS: DNR
DVT Prophylaxis: SCDs
DW Daughter at bedside 12/12
Pt is agreeable to go to rehab
Imaging:
-Chest x-ray conducted on 12/09/2024:
Mild cephalization concerning for developing CHF. Clinical and laboratory correlation recommended. New Cardiomegaly. Stable-EKG conducted on 12/09/2024:
SINUS RHYTHM WITH OCCASIONAL PREMATURE VENTRICULAR COMPLEXES
MINIMAL VOLTAGE CRITERIA FOR LVH, MAY BE NORMAL VARIANT ( Zeigler product )
ST and T WAVE ABNORMALITY, CONSIDER LATERAL ISCHEMIA
PROLONGED QT
ABNORMAL ECG
WHEN COMPARED WITH ECG OF 06-SEP-2022 16:34,
NO SIGNIFICANT CHANGE WAS FOUND
Procedures: N/A
Anticipated Discharge: Within 24 hours
Subjective/Interval History
-
Date of Service: December 13, 2024
Feels okay in general. Voicing no specific complaints other than scheduled DuoNebs. She thinks that she does not need that. Her breathing is comfortable. Denies much of cough. Denies chest pain. No fever chills.
No nausea vomiting. She is picking up little more on oral intake.
Objective Data
-
Vital Signs:
Vital Signs
Temp Pulse Resp BP Pulse Ox
98.2 F 72 16 150/72 92
12/13/24 07:40 12/13/24 08:22 12/13/24 08:22 12/13/24 08:01 12/13/24 08:22
I&O
12/12/24 12/13/24 12/14/24
05:59 06:59 06:59
Intake Total
Output Total
Balance
Physical Exam
-
General: Comfortable
Respiratory: Clear to Auscultation (anteriorly) and Non Labored Respirations; Negative Accessory Resp Muscle Use
Cardiac: Regular Rhythm and S1/S2
GI: Soft
Neuro: AO x 3
Psych: Calm
--- NOTE | 2024-12-13 14:46 | W.PN.PUL3 ---
Today's Communication / Plan
-
-Trial of Duoneb tid, has chronically runny nose and ipratropium seems to help, having hard time with ipratropium spray intra-nasaly
-No further pulmonary work up recommended
-Place foam around O2 tubing as it digs behind her ears
-Goals of care discussions
Assessment
-
Patient is an 84-year-old female with previous history of CHF, COPD, chronic kidney disease, hypertension presenting from home to ER for generalized weakness, fatigue and progressive decline over the past week. She also notes no
appetite/decreased p.o. intake, weight loss (approximately 76 pounds), was sent in by her PCP due to concerns for dehydration. She was notably hypoxic on room air at 84%. She has oxygen at home but has declined using it. proBNP notably 3800,
chest x-ray ordered indicating CHF exacerbation. She otherwise has clinical symptoms consistent with failure to thrive.
Acute hypoxemic respiratory failure
Decreased PO intake/weight loss >75 lbs
Severe protein calorie malnutrition, BMI 15
FTT
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
adm for R pneumothorax s/p fall s/p R chest tube placement 2022
Chronic systolic/diastolic CHF, NICM
History of small bilateral pulmonary nodules
HLD
CKD stage III
Glaucoma
Moderate MReg
Cervical kyphosis
Severe protein calorie malnutrition with cachexia
Osteoporosis
Depression
Chronic rhinorrhea
Former smoker
Plan:
#Failure to thrive.
-CXR and CT from 2023 reviewed. No significant emphysema noted. Remote h/o smoking >40 years ago without any s/s of COPD/Emphysema in these years
-Do not suspect any significant obstructive airway disease
-Recommend supplemental O2 as needed. Patient reports that tubing digs behind her ear, so she refuses. Can use foam around tubing behind the ear
-Can use Duoneb as she has chronically runny nose (long standing issue for her) and Ipratropium seems to help, has hard time coordinating nasal spray.
-Recommend no further pulmonary work up
Respiratory status is stable, initially placed on O2 in ER, now 93% on RA
Had refused her O2 for weeks at home, she does not wish to continue using it
Albuterol if needed-currently not bronchospastic, nebs added PRN
Radiographs reviewed-chest x-ray suggestive CHF
She has been stopped on her lasix due to concerns for dehydration
She has had poor PO intake for years, per daughter
Lost about >75 lbs in several years, current BMI 15
She has declined artificial means for nutrition
She wishes for hospice
Dr. Umanzor called daughter to discuss this and she expressed anxiety about her mother needing a lot of care and fears her being abandoned
Daughter was open to speaking to hospice as well
I communicated my discussions with the care ream
DVT prophylaxis
Nutrition
I don't foresee any additional recommendations from my perspective that robyn change her QoL
Hospice consult placed, awaiting further decision making from family
We will follow up through the weekend by family request
Diagnostic Data
CXR 12/09/24- Mild cephalization concerning for developing CHF. Cardiomegaly. Stable
CXR 03-12 and 04-28: portable, no gross R pntx, improved R sided sc emphysema
CXRs -, c/w 03. Initial film with R sided sc emphysema, R apex not seen due to head overimposition. Interim placement of R chest tube, no residual pneumothorax. Persistent R sc emphysema
CT AP 12/10/24- No acute pathology of the abdomen or pelvis. Too small to characterize hypodense hepatic lesion likely a small cyst or hemangioma. Tiny 1 mm nonobstructing left renal stone.
Severe atherosclerotic vascular disease. Moderate diverticulosis.
CT chest s/c 03-10-23 IMPRESSION:
1.).There is approximately 20% right-sided pneumothorax. There is moderate subcutaneous emphysema in the right hemithorax. There is acute fracture of the right third rib posteriorly
2). Small probably benign bilateral pulmonary nodules
3). Minimal right pleural effusion with atelectasis at the posterior right lung base
4). Mild atelectasis at the medial left lung base as well as at the lateral right middle lobe
ECHO 12/10/24- LV ejection fraction is 55-60%, by visual assessment. Normal regional wall motion. Normal right ventricular size and function. Mild to moderate mitral regurgitation. Mild aortic stenosis; peak/mean gradients are 12/6 mmHg, calculated
PALOMA is 1.5 cm2. Mild tricuspid regurgitation. Estimated pulmonary artery pressure of 25-30 mmHg. Compared to previous echo on 02/05/2023, LVEF has improved (previously 45-50%). Mild aortic stenosis is now noted.
TTE 02-05-23 CONCLUSIONS: Mildly reduced left trickle function estimate ejection fraction 45 to 50%. Moderate mitral regurgitation. Mild tricuspid regurgitation. Compared to previous report 08/20/2022 the findings are similar
Total time spent on this consultation/encounter __81__ minutes which includes review of history, physical exam, medications, laboratory data, personal review of imaging, extensive review of outpatient records, discussion with care team and
respiratory therapy.
Subjective Data
-
Date of Service:
Date of Service: December 13, 2024
Subjective:
Patient comfortably sitting in bed, no acute distress
Review of Systems
Genitourinary: Other (No new symptoms reported)
Objective Data
Data Reviewed
Vital Signs / I&O / Oxygen:
Vital Signs
Temp Pulse Resp BP Pulse Ox
98.2 F 72 16 150/72 92
12/13/24 07:40 12/13/24 08:22 12/13/24 08:22 12/13/24 08:01 12/13/24 08:22
Intake and Output
12/12/24 12/13/24 12/14/24
05:59 06:59 06:59
Intake Total
Output Total
Balance
SaO2 92
Nasal Cannula flow liters per 2
minute
Physical Exam
HEENT: Normocephalic and Other (bitemporal wasting , cachectic )
Cardiovascular: S1-S2
Respiratory: Clear
GI: Soft
Neurology: Awake
Skin: Warm
Labs/Micro/Reports
Lab Data
12/11/24 06:00
12/11/24 06:00
Microbiology
12/09/24 14:45 Urine Urine Culture - Final
[2024-12-13 15:35] VITALS: BP 138/82
[2024-12-13] MEDS: VITAMIN D3 (cholecalciferol) 25 MCG PO (17:54)
[2024-12-13] MEDS: LIPITOR 10 MG PO (17:54)
[2024-12-13 21:16] VITALS: BP 112/65
[2024-12-13] MEDS: REFRESH EYE DROPS (PF) BOTH EYES (21:17)
[2024-12-13] MEDS: XALATAN OPHTHALMIC SOLUTION 1 DROP BOTH EYES (22:12)
[2024-12-13 23:55] VITALS: BP 92/53
[2024-12-14 06:00] VITALS: BMI 15.2
[2024-12-14 07:52] VITALS: BP 127/75
[2024-12-14] MEDS: DITROPAN 2.5 MG PO (08:34)
[2024-12-14] MEDS: ALPHAGAN 0.2% EYE DROPS 1 DROP BOTH EYES ×2 (08:35→20:59)
[2024-12-14] MEDS: ROBITUSSIN 100 MG PO (08:35)
[2024-12-14] MEDS: REFRESH EYE DROPS (PF) 1 DROPS BOTH EYES ×2 (08:35→21:33)
[2024-12-14] MEDS: TIMOPTIC 0.5% OPHTHALMIC SOLUTION 1 DROP BOTH EYES ×2 (08:36→21:49)
[2024-12-14] MEDS: TOPROL XL 25 MG PO ×2 (08:36→20:59)
--- NOTE | 2024-12-14 09:45 | W.PN.PUL.V3 ---
Today's Communication / Plan
-
Wean oxygen.
Aspiration precautions.
Comfort a priority.
Hospice evaluation
Pulmonary will sign off
Assessment
-
Patient is an 84-year-old female with previous history of CHF, COPD, chronic kidney disease, hypertension presenting from home to ER for generalized weakness, fatigue and progressive decline over the past week. She also notes no
appetite/decreased p.o. intake, weight loss (approximately 76 pounds), was sent in by her PCP due to concerns for dehydration. She was notably hypoxic on room air at 84%. She has oxygen at home but has declined using it. proBNP notably 3800,
chest x-ray ordered indicating CHF exacerbation. She otherwise has clinical symptoms consistent with failure to thrive.
Acute hypoxemic respiratory failure
Decreased PO intake/weight loss >75 lbs
Severe protein calorie malnutrition, BMI 15
FTT
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
adm for R pneumothorax s/p fall s/p R chest tube placement 2022
Chronic systolic/diastolic CHF, NICM
History of small bilateral pulmonary nodules
HLD
CKD stage III
Glaucoma
Moderate MReg
Cervical kyphosis
Severe protein calorie malnutrition with cachexia
Osteoporosis
Depression
Chronic rhinorrhea
Former smoker
Plan:
Respiratory status relatively stable.
Supplemental oxygen as needed-currently on room air.
Aspiration precautions.
Nebulizers as needed.
Diuresis as tolerated.
Monitor renal function, edema, intake, output
Failure to thrive.
DNR status noted.
Comfort a priority.
Hospice evaluation-pulmonary. We'll sign off- Please call with questions.
Diagnostic Data
CXR 12/09/24- Mild cephalization concerning for developing CHF. Cardiomegaly. Stable
CXR 03-12 and 04-28: portable, no gross R pntx, improved R sided sc emphysema
CXRs -, c/w 03. Initial film with R sided sc emphysema, R apex not seen due to head overimposition. Interim placement of R chest tube, no residual pneumothorax. Persistent R sc emphysema
CT AP 12/10/24- No acute pathology of the abdomen or pelvis. Too small to characterize hypodense hepatic lesion likely a small cyst or hemangioma. Tiny 1 mm nonobstructing left renal stone.
Severe atherosclerotic vascular disease. Moderate diverticulosis.
CT chest s/c 03-10-23 IMPRESSION:
1.).There is approximately 20% right-sided pneumothorax. There is moderate subcutaneous emphysema in the right hemithorax. There is acute fracture of the right third rib posteriorly
2). Small probably benign bilateral pulmonary nodules
3). Minimal right pleural effusion with atelectasis at the posterior right lung base
4). Mild atelectasis at the medial left lung base as well as at the lateral right middle lobe
ECHO 12/10/24- LV ejection fraction is 55-60%, by visual assessment. Normal regional wall motion. Normal right ventricular size and function. Mild to moderate mitral regurgitation. Mild aortic stenosis; peak/mean gradients are 12/6 mmHg, calculated
PALOMA is 1.5 cm2. Mild tricuspid regurgitation. Estimated pulmonary artery pressure of 25-30 mmHg. Compared to previous echo on 02/05/2023, LVEF has improved (previously 45-50%). Mild aortic stenosis is now noted.
TTE 02-05-23 CONCLUSIONS: Mildly reduced left trickle function estimate ejection fraction 45 to 50%. Moderate mitral regurgitation. Mild tricuspid regurgitation. Compared to previous report 08/20/2022 the findings are similar
Total time spent on this consultation/encounter __81__ minutes which includes review of history, physical exam, medications, laboratory data, personal review of imaging, extensive review of outpatient records, discussion with care team and
respiratory therapy.
Subjective Data
-
Date of Service:
Date of Service: December 14, 2024
Chief Complaint: Pulmonary Follow Up and Dyspnea Follow Up
Review of Systems
General: Other (Per HPI)
Objective Data
Data Reviewed
Vital Signs / I&O:
Vital Signs
Temp Pulse Resp BP Pulse Ox
99.1 F 75 18 127/75 92
12/14/24 07:52 12/14/24 08:36 12/14/24 07:52 12/14/24 08:36 12/14/24 07:52
Intake and Output
12/13/24 12/14/24 12/15/24
06:59 06:59 06:59
Intake Total
Balance
SaO2: 92
Nasal Cannula flow liters per minute: 2
Physical Exam
General: Respiratory Distress (n) and Comfortable
HEENT: Normocephalic, Anicteric and Other (bitemporal wasting , cachectic )
Cardiovascular: S1-S2 and Regular Rhythm
Respiratory: Clear, Wheeze (n), Crackles ( few Basilar), Rhonchi (n), Non-Labored Respirations, Accessory Resp Muscle Use (n) and Stridor
GI: Soft, Non Distended and Non Tender
Neurology: Awake, Alert and No Motor Deficits
Skin: Warm, Dry, Cyanosis (n), Jaundice (n) and Rash (n)
Labs/Micro/Reports
Lab Data
12/11/24 06:00
12/11/24 06:00
--- NOTE | 2024-12-14 09:49 | HOSPNOTE ---
Patient is going to rehab, hospice will sign off. If the plan changes please reach out.
--- NOTE | 2024-12-14 10:49 | W.PN.HOSP.TC ---
Addendum entered and electronically signed by Juan Diego Parada MD 12/14/24 20:04:
Attending Addendum-
I saw and evaluated the patient. I reviewed the resident�s note and agree with findings and plan as documented in the resident�s note. Sub: Feels weak. 'Im not going on hospice im going to rehab and getting better' Full 12 point ROS reviewed and
negative except as documented Exam: Vitals reviewed in chart GEN-emaciated NAD hert RRR lungs clear abd soft LE no edema
Plan:
-Failure to thrive with severe protein/calorie malnutrition
BMI 15.0
Start Remeron likely has component of depression
further eval as OP
refusing hospice
Poor prognosis
-COPD: no flare
- cont ipratropium
-Hyperlipidemia: Stable
Continue atorvastatin
# HFpEF
- not in AE
- hold lasix
- echo 3/6- ef 55-60%
# HTN
- cont metoprolol and hydralazine
# Overactive bladder
- cont oxybutynin
CODE STATUS: DNR
DVT Prophylaxis: SCDs
Pt is agreeable to go to rehab-DC to [facility] in am
Time spent coordinating care, review of plan of care with resident, personally reviewed records in EMR, med rec, consults, notes, labs, radiology, d/w nursing and CM � 52 mins
Original Note:
Today's Communication/Plan
-
Continue with home medications. Discharge to SNF when bed available.
Assessment / Plan
Assessment / Plan
Assessment/Plan:
84-year-old female who presented to [facility] with generalized weakness for 1 month. Initially thought to be acute on chronic CHF exacerbation, but after further workup, this was ruled out and adult failure to thrive was more likely.
Patient is okay to go to SNF. Interested in hospice care.
Failure to thrive with severe protein/calorie malnutrition
-BMI 15
-Visibly cachectic
-Appearance of severe depression at temples, oral, buccal, clavicle seen, poor skin turgor
-Food intake less than 50% for meal
-Patient should be encouraged to eat full meals
-No obvious acute decompensation of chronic coronary disease
-Interested in hospice consult
History of COPD
-No acute flare
-Possible chronic hypoxic respiratory insufficiency untreated
-Continue home inhalers and dextromethorphan guaifenesin
-Aspiration precautions and nebulizers as needed per pulmonology
-Not compliant with home oxygen and not interested in being on oxygen in the hospital is aggravated 3 years
Hyperlipidemia
� Continue atorvastatin 10
Glaucoma
�Continue eyedrops
HFpEF
-Upon presentation to ED, initially thought acute on chronic HFrEF exacerbation with proBNP 3800 and cephalization on chest x-ray with crackles heard throughout lungs.
� Repeat echo revealed new ejection fraction improved to 55 to 60% from previous 45% on 08/20/2022
-Cardiology consulted and they do not believe patient's presentation correlates with acute CHF and believes this is likely more consistent with failure to thrive. They recommended discontinuing any diuretics and encourage oral intake.
CODE STATUS DNR
DVT prophylaxis SCDs
Interested in going to SNF and interested in hospice consult in outpatient setting.
Anticipated Discharge: Within 24 hours
Subjective/Interval History
-
Date of Service: December 14, 2024
In between contemplating hospice.
Objective Data
-
Vital Signs:
Vital Signs
Temp Pulse Resp BP Pulse Ox
99.1 F 75 18 127/75 92
12/14/24 07:52 12/14/24 08:36 12/14/24 07:52 12/14/24 08:36 12/14/24 09:45
I&O
12/13/24 12/14/24 12/15/24
06:59 06:59 06:59
Intake Total
Balance
Review of Systems
-
History Source: Patient
Constitutional: Reports No Symptoms
Respiratory: Reports No Symptoms
Cardiac: Reports No Symptoms
Abdomen/GI: Reports No Symptoms
Genitourinary: Reports No Symptoms
Neuro: Reports No Symptoms
Physical Exam
-
General: No Apparent Distress and Cachectic
HEENT: Normocephalic
Respiratory: Clear to Auscultation
Cardiac: Regular Rhythm and S1/S2
GI: Soft, Nontender and Nondistended
Musculoskeletal: No Edema
Skin: Warm and Dry
Neuro: Awake, Alert and Oriented
Psych: Calm
--- NOTE | 2024-12-14 10:57 | CHAP ---
Rabbi Coyle of [facility] in [place] is on his way to visit with Herminia.
[2024-12-14] MEDS: ROBITUSSIN PO ×3 (12:00→21:35)
[2024-12-14 12:57] VITALS: BP 125/75; PULSE 75; O2SAT 92
[2024-12-14] MEDS: DUONEB 3 ML INH (13:35)
[2024-12-14 15:15] VITALS: BP 100/52
--- NOTE | 2024-12-14 15:48 | CM ---
CM reviewed chart, spoke with patients daughter, discussed [facility] unable to accept, [facility] reviewing. CM did let [facility] know that daughters is a Pj. Patient will need auth for SNF. Daughter concerned patients t.v.
remote is not working, maintenance aware. Daughter confirmed patient is not interested in hospice at this time. CM will continue to follow for all discharge planning needs.
Plan; SNF pending accepting facility, [facility] reviewing- will need auth.
[2024-12-14] MEDS: VITAMIN D3 (cholecalciferol) 25 MCG PO (17:06)
[2024-12-14] MEDS: LIPITOR 10 MG PO (17:06)
[2024-12-14 20:58] VITALS: BP 127/62
[2024-12-14] MEDS: TIMOPTIC 0.5% OPHTHALMIC SOLUTION BOTH EYES (21:19)
[2024-12-14] MEDS: XALATAN OPHTHALMIC SOLUTION BOTH EYES (21:31)
[2024-12-14] MEDS: REMERON PO (21:35)
[2024-12-14] MEDS: XALATAN OPHTHALMIC SOLUTION 1 DROP BOTH EYES (21:50)
[2024-12-14 23:29] VITALS: BP 123/69
[2024-12-15 06:00] VITALS: BMI 15.4
[2024-12-15 07:00] VITALS: BP 111/51
[2024-12-15] MEDS: ALPHAGAN 0.2% EYE DROPS 1 DROP BOTH EYES ×2 (08:17→20:46)
[2024-12-15] MEDS: REFRESH EYE DROPS (PF) 1 DROPS BOTH EYES ×2 (08:17→20:46)
[2024-12-15] MEDS: TOPROL XL 25 MG PO ×2 (08:17→20:49)
[2024-12-15] MEDS: DITROPAN 2.5 MG PO (08:18)
[2024-12-15] MEDS: TIMOPTIC 0.5% OPHTHALMIC SOLUTION 1 DROP BOTH EYES ×2 (08:19→20:46)
[2024-12-15] MEDS: ROBITUSSIN 100 MG PO (08:21)
--- NOTE | 2024-12-15 08:28 | W.PN.HOSP.TC ---
Addendum entered and electronically signed by Juan Diego Parada MD 12/15/24 22:41:
Attending Addendum-
I saw and evaluated the patient. I reviewed the resident�s note and agree with findings and plan as documented in the resident�s note. Sub: States she feels greatly improved but appears weak and lethargic. 'Im going to get better!' Full 12 point ROS
reviewed and negative except as documented Exam: Vitals reviewed in chart GEN-emaciated cathectic appearing NAD heart RRR lungs clear abd soft LE no edema
Plan:
#Failure to thrive with severe protein/calorie malnutrition
BMI 15.0
cont Remeron likely has component of depression - uptitrate as OP
further eval as OP
refusing hospice
Poor overall prognosis
#COPD
- not in AE
- cont ipratropium
#Hyperlipidemia: Stable
Continue atorvastatin
# HFpEF
- not in AE
- hold lasix
- echo 3/6- ef 55-60%
# HTN
- cont metoprolol and hydralazine
# Overactive bladder
- cont oxybutynin
CODE STATUS: DNR
DVT Prophylaxis: SCDs
Pt is agreeable to go to rehab-DC to [facility] in am
Time spent coordinating care, review of plan of care with resident, personally reviewed records in EMR, med rec, consults, notes, labs, radiology, d/w nursing and CM � 51 mins
Original Note:
Today's Communication/Plan
-
Start mirtazapine, discharged to SNF when bed available
Assessment / Plan
Assessment / Plan
Assessment/Plan:
84-year-old female who presented to [facility] with generalized weakness for 1 month. Initially thought to be acute on chronic CHF exacerbation, but after further workup, this was ruled out and adult failure to thrive was more likely.
Patient stated today that she wants to leave the hospital and go to rehab and get better. However, pt is also refusing medications and lab draws. She appears very dehydrated today. Stated yesterday that she felt too weak to want to drink.
Encouraged increased p.o. intake and advised nurse to encourage as well.
Failure to thrive with severe protein/calorie malnutrition
-BMI 15
-Visibly cachectic
-Appearance of severe depression at temples, oral, buccal, clavicle seen, poor skin turgor
-Food intake less than 50% for meal
-Patient should be encouraged to eat full meals
-No obvious acute decompensation of chronic coronary disease
-Start mirtazapine is likely component of depression and will help with weight gain
Depression
-Start mirtazapine
History of COPD
-No acute flare
-Aspiration precautions and nebulizers as needed per pulmonology
-Not compliant with home oxygen and not interested in being on oxygen in the hospital
Hyperlipidemia
� Continue atorvastatin 10
HFpEF
-Not in acute exacerbation
-Hold Lasix per cardiology
-Echo on 12/10/2024 left ventricular ejection fraction improved to 55 to 60% from previous 45% on 08/20/2022
Glaucoma
�Continue eyedrops
Overactive bladder
-Continue oxybutynin
CODE STATUS DNR
DVT prophylaxis SCDs
Anticipated Discharge: Within 24 hours
Subjective/Interval History
-
Date of Service: December 15, 2024
Objective Data
-
Labs:
Laboratory Results
12/15/24
06:00
WBC Pending
Hgb Pending
Hct Pending
Plt Count Pending
Sodium Pending
Potassium Pending
Chloride Pending
Carbon Dioxide Pending
BUN Pending
Creatinine Pending
Glucose Pending
Calcium Pending
Vital Signs:
Vital Signs
Temp Pulse Resp BP Pulse Ox
98.6 F 59 24 111/51 91
12/15/24 07:00 12/15/24 07:00 12/15/24 07:00 12/15/24 07:00 12/15/24 07:00
I&O
12/14/24 12/15/24 12/16/24
06:59 06:59 06:59
Intake Total 440 / 440
Balance 440 / 440
Review of Systems
-
History Source: Patient
Constitutional: Reports Fatigue and Weakness
Respiratory: Reports No Symptoms
Cardiac: Reports No Symptoms
Abdomen/GI: Reports No Symptoms
Neuro: Reports No Symptoms
Psych: Reports Depressed
Physical Exam
-
General: Cachectic
HEENT: Normocephalic
Respiratory: Clear to Auscultation
Cardiac: Regular Rhythm and S1/S2
GI: Soft, Nontender, Nondistended and Normal Bowel Sounds
Musculoskeletal: No Edema
Neuro: AO x 3
Psych: Calm and Depressed
--- NOTE | 2024-12-15 09:31 | CM ---
Chart reviewed. Patient recommended for skilled rehab, referral being reviewed for [facility].
CM followed up w/ Michela/[facility] admissions who stated referral has to be pulled for her DON to review but will not have an available bed until tomorrow.
Patient will require insurance auth prior to d/c
Physician resident updated
Plan: [facility] SNF tomorrow; pending auth
[2024-12-15] MEDS: ROBITUSSIN PO ×3 (12:22→20:44)
[2024-12-15 15:00] VITALS: BP 95/51
[2024-12-15 16:40] VITALS: BP 90/52; PULSE 66
[2024-12-15] MEDS: VITAMIN D3 (cholecalciferol) 25 MCG PO (17:04)
[2024-12-15] MEDS: LIPITOR 10 MG PO (17:04)
[2024-12-15] MEDS: DUONEB 3 ML INH (17:15)
[2024-12-15] MEDS: REMERON 7.5 MG PO (20:44)
[2024-12-15] MEDS: XALATAN OPHTHALMIC SOLUTION 1 DROP BOTH EYES (20:46)
[2024-12-15 23:11] VITALS: BP 127/66
--- NOTE | 2024-12-16 01:16 | PTCARENOTE ---
AAO x 4 but forgetful and anxious. VSS. Patient complains of sacral/coccyx pain--q 2 hour turns performed to offload from present, pressure injuries. Patient with poor appetite--nursing staff to encourage PO intake. Promote independence for ADLs.
Patient particular regarding eye drops--please administer in order from [facility], followed by Timolol, then Refresh eye drops, and Latanoprost--wait 10 minutes between each eye drop. Plan for discharge to [facility] pending insurance
authorization. Bed in lowest position. Bed alarm on. Call agarwal and personal belongings within reach.
[2024-12-16 06:00] VITALS: BMI 15.3
[2024-12-16 07:00] VITALS: BP 123/64
[2024-12-16] MEDS: ALPHAGAN 0.2% EYE DROPS 1 DROP BOTH EYES ×2 (08:35→21:27)
[2024-12-16] MEDS: TIMOPTIC 0.5% OPHTHALMIC SOLUTION 1 DROP BOTH EYES ×2 (09:04→21:27)
[2024-12-16] MEDS: DITROPAN 2.5 MG PO ×2 (09:21→21:27)
[2024-12-16] MEDS: TOPROL XL 25 MG PO ×2 (09:22→21:29)
[2024-12-16] MEDS: ROBITUSSIN PO ×3 (09:24→22:03)
[2024-12-16] MEDS: REFRESH EYE DROPS (PF) 1 DROPS BOTH EYES ×2 (09:24→21:27)
--- NOTE | 2024-12-16 14:28 | W.PN.HOSP.TC ---
Addendum entered and electronically signed by Juan Diego Parada MD 12/16/24 23:16:
Attending Addendum-
I saw and evaluated the patient. I reviewed the resident�s note and agree with findings and plan as documented in the resident�s note. Sub: per nursing refusing to eat or paticipate in therapy. unable to lift head up to speak. extremely lethargic.
Full 12 point ROS reviewed and negative except as documented Exam: Vitals reviewed in chart GEN-emaciated cachectic appearing NAD heart RRR lungs clear abd soft LE no edema
Plan:
#Failure to thrive with severe protein/calorie malnutrition
BMI 15.0
cont Remeron likely has component of depression - uptitrate as OP
further eval as OP
now amenable to comfort/ pall care
will discuss with daughter POA to verify
Poor overall prognosis
#COPD
- not in AE
- cont ipratropium
#Hyperlipidemia: Stable
Continue atorvastatin
# HFpEF
- not in AE
- hold lasix
- echo 3/6- ef 55-60%
# HTN
- cont metoprolol and hydralazine
# Overactive bladder
- cont oxybutynin
CODE STATUS: DNR
DVT Prophylaxis: SCDs
Pt is agreeable to go to rehab but no physically unable overall extremely poor rehab capacity -DC to [facility] on hold
Time spent coordinating care, review of plan of care with resident, personally reviewed records in EMR, med rec, consults, notes, labs, radiology, d/w nursing and CM � 52 mins
Original Note:
Today's Communication/Plan
-
Goals of care discussion
Assessment / Plan
Assessment / Plan
Assessment/Plan:
84-year-old female who presented to [facility] with generalized weakness for 1 month. Initially thought to be acute on chronic CHF exacerbation, but after further workup, this was ruled out and adult failure to thrive was more likely.
Today, pt is refusing to eat, drink or cooperate with staff. She wants to go to SNF to leave the hospital, but is currently too weak to move and would not be able to participate in SNF activities. She is now interested in comfort measures.
Failure to thrive with severe protein/calorie malnutrition
-BMI 15
-Visibly cachectic
-Appearance of severe depression at temples, oral, buccal, clavicle seen, poor skin turgor
-Food intake less than 50% for meal
-Patient should be encouraged to eat full meals
-No obvious acute decompensation of chronic coronary disease
-Continue mirtazapine is likely component of depression and will help with weight gain
-Hospice appreciated as pt is now refusing to eat or drink anything and more interested in comfort care.
Depression
-Continue mirtazapine
History of COPD
-No acute flare
-Aspiration precautions and nebulizers as needed per pulmonology
-Not compliant with home oxygen and not interested in being on oxygen in the hospital
Hyperlipidemia
� Continue atorvastatin 10
HFpEF
-Not in acute exacerbation
-Hold Lasix per cardiology
-Echo on 12/10/2024 left ventricular ejection fraction improved to 55 to 60% from previous 45% on 08/20/2022
Glaucoma
�Continue eyedrops
Overactive bladder
-Continue oxybutynin
CODE STATUS DNR
DVT prophylaxis SCDs
Spoke to daughter over the phone. She is visiting today to speak to her mom about goals of care. Will continue to keep in touch with her.
Anticipated Discharge: Within 24 hours
Subjective/Interval History
-
Date of Service: December 16, 2024
Objective Data
-
Labs:
Laboratory Results
12/16/24
06:00
WBC Cancelled
Hgb Cancelled
Hct Cancelled
Plt Count Cancelled
Sodium Cancelled
Potassium Cancelled
Chloride Cancelled
Carbon Dioxide Cancelled
BUN Cancelled
Creatinine Cancelled
Glucose Cancelled
Calcium Cancelled
Vital Signs:
Vital Signs
Temp Pulse Resp BP Pulse Ox
99.4 F 78 24 123/64 92
12/16/24 07:00 12/16/24 09:22 12/16/24 07:00 12/16/24 09:22 12/16/24 07:00
I&O
12/15/24 12/16/24 12/17/24
06:59 06:59 06:59
Intake Total 440 / 440 120 / 120
Balance 440 / 440 120 / 120
Review of Systems
-
History Source: Patient
Constitutional: Reports Fatigue
Respiratory: Reports No Symptoms
Cardiac: Reports No Symptoms
Abdomen/GI: Reports No Symptoms
Neuro: Reports No Symptoms
Physical Exam
-
General: Cachectic
Respiratory: Clear to Auscultation
Cardiac: Regular Rhythm and S1/S2
GI: Soft, Nontender and Nondistended
Musculoskeletal: No Edema
Skin: Warm and Dry
Neuro: AO x 3
--- NOTE | 2024-12-16 14:48 | HOSPNOTE ---
Patient may be going to [facility] for rehab however patient is not eating refused labs and daughter will be coming in to have goals of care discussion.
[2024-12-16 15:00] VITALS: BP 90/51
[2024-12-16] MEDS: ROBITUSSIN 100 MG PO ×2 (15:05→17:56)
--- NOTE | 2024-12-16 15:50 | CM ---
CM reviewed chart, reviewed with Resident, goals of care discussion to be had with patients daughter. CM met with daughter, discussed if patient is to discharge on hospice, would prefer home hospice, TT to Liaison with update. CM discussed option
to add additional caregivers (private pay) at home in addition to daughters support. Daughter would like to speak with Resident prior to decision making. CM will continue to follow for all discharge planning needs.
Plan; goals of care discussion to be had
[2024-12-16] MEDS: LIPITOR 10 MG PO (17:55)
[2024-12-16] MEDS: VITAMIN D3 (cholecalciferol) 25 MCG PO (17:56)
[2024-12-16] MEDS: REMERON 7.5 MG PO (21:27)
[2024-12-16] MEDS: XALATAN OPHTHALMIC SOLUTION 1 DROP BOTH EYES (21:28)
[2024-12-16 23:28] VITALS: BP 129/67
--- NOTE | 2024-12-17 03:45 | PTCARENOTE ---
Patient lethargic. Oriented x 4, anxious. Pressured speech. Patient complains of generalized pain, inhibiting her willingness and ability for q 2 hour turns. Foams changed. Incontinence care completed. Pillows utilized for pressure reduction.
Patient with poor appetite and cachectic. PO fluids encouraged, including Ensure supplements. Bed in lowest position. Call agarwal and personal belongings within reach.
[2024-12-17 06:00] VITALS: BMI 15.4
[2024-12-17 07:00] VITALS: BP 93/50
--- NOTE | 2024-12-17 08:39 | W.PN.HOSP.TC ---
Addendum entered and electronically signed by Juan Diego Parada MD 12/17/24 22:39:
Attending Addendum-
I saw and evaluated the patient. I reviewed the resident�s note and agree with findings and plan as documented in the resident�s note. Sub: per nursing refusing to eat or participate in therapy. unable to lift head up to speak. extremely lethargic.
barely speaking Full 12 point ROS reviewed and negative except as documented Exam: Vitals reviewed in chart GEN-emaciated cachectic appearing NAD heart RRR lungs clear abd soft LE no edema Neuro lethargic not following commands
Plan:
#Failure to thrive with severe protein/calorie malnutrition
BMI 15.0
DC Remeron could be contributing to mental state
now amenable to comfort/ pall care
will discuss with daughter POA to verify
Poor overall prognosis Hospice appropriate
[facility] will not take patient in current state
#COPD
- not in AE
- cont ipratropium
#Hyperlipidemia: Stable
Continue atorvastatin
# HFpEF
- not in AE
- hold lasix
- echo 3/6- ef 55-60%
# HTN
- cont metoprolol and hydralazine
# Overactive bladder
- cont oxybutynin
CODE STATUS: DNR
DVT Prophylaxis: SCDs
Pt is agreeable to go to rehab but not physically able overall extremely poor rehab capacity -DC to [facility] on hold will require hospice
Time spent coordinating care, review of plan of care with resident, personally reviewed records in EMR, med rec, consults, notes, labs, radiology, d/w nursing and CM � 35 mins
Original Note:
Today's Communication/Plan
-
Continue goals of care discussion
Encourage PO intake
Assessment / Plan
Assessment / Plan
Assessment/Plan:
84-year-old female who presented to [facility] with generalized weakness for 1 month. Initially thought to be acute on chronic CHF exacerbation, but after further workup, this was ruled out and adult failure to thrive was more likely.
Today, pt is refusing to eat, drink or cooperate with staff. She wants to go to SNF to leave the hospital, but is currently too weak to move and would not be able to participate in SNF activities. Stated she would like to leave the hospital and go
to SNF, but refuses to eat or drink or participate in her medical care. Goals of care discussion ongoing.
Failure to thrive with severe protein/calorie malnutrition
-BMI 15
-Visibly cachectic
-Appearance of severe depression at temples, oral, buccal, clavicle seen, poor skin turgor
-Food intake less than 50% for meal
-Patient should be encouraged to eat full meals
-No obvious acute decompensation of chronic coronary disease
-Continue mirtazapine is likely component of depression and will help with weight gain
-Hospice appreciated as pt is now refusing to eat or drink anything and more interested in comfort care.
-Ongoing discussion regarding goals of care between daughter, patient and hospice
Depression
-Continue mirtazapine
History of COPD
-No acute flare
-Aspiration precautions and nebulizers as needed per pulmonology
-Not compliant with home oxygen and not interested in being on oxygen in the hospital
Hyperlipidemia
� Continue atorvastatin 10
HFpEF
-Not in acute exacerbation
-Hold Lasix per cardiology
-Echo on 12/10/2024 left ventricular ejection fraction improved to 55 to 60% from previous 45% on 08/20/2022
Glaucoma
�Continue eyedrops
Overactive bladder
-Continue oxybutynin
CODE STATUS DNR
DVT prophylaxis SCDs
Daughter stated she will speak to her mom further about goals of care. Leaning towards hospice.
Anticipated Discharge: Within 24 hours
Subjective/Interval History
-
Date of Service: December 17, 2024
Objective Data
-
Vital Signs:
Vital Signs
Temp Pulse Resp BP Pulse Ox
98.3 F 69 18 129/67 92
12/16/24 23:28 12/16/24 23:28 12/16/24 23:28 12/16/24 23:28 12/16/24 23:28
I&O
12/16/24 12/17/24 12/18/24
06:59 06:59 06:59
Intake Total 120 / 120 330 / 330
Balance 120 / 120 330 / 330
Review of Systems
-
History Source: Patient
Respiratory: Reports No Symptoms
Cardiac: Reports No Symptoms
Abdomen/GI: Reports No Symptoms
Neuro: Reports No Symptoms
Physical Exam
-
General: Cachectic
HEENT: Normocephalic
Respiratory: Clear to Auscultation
Cardiac: Regular Rhythm and S1/S2
GI: Soft, Nontender, Nondistended and Normal Bowel Sounds
Musculoskeletal: No Edema
Skin: Warm and Dry
Neuro: Other (Fatigued and non-cooperative )
Psych: Calm
[2024-12-17 09:30] VITALS: BP 110/60
[2024-12-17] MEDS: ALPHAGAN 0.2% EYE DROPS 1 DROP BOTH EYES ×2 (09:43→21:12)
[2024-12-17] MEDS: REFRESH EYE DROPS (PF) 1 DROPS BOTH EYES ×2 (09:43→21:11)
[2024-12-17] MEDS: ROBITUSSIN 100 MG PO ×2 (09:44→21:11)
[2024-12-17] MEDS: TIMOPTIC 0.5% OPHTHALMIC SOLUTION 1 DROP BOTH EYES ×2 (09:45→21:11)
[2024-12-17] MEDS: TOPROL XL 25 MG PO ×2 (09:45→21:11)
--- NOTE | 2024-12-17 09:51 | CM ---
CM reviewed chart, spoke with daughter regarding goals of care conversation. Per daughter, she did speak with patient yesterday who remains undecided on rehab versus hospice, per daughter, patient wants to get better but also needs to be able to
participate in therapy. Daughter understands that patient/family will need to make a decision, will be in to visit patient later on today. Daughter reports she did speak with liaison from Hospice yesterday. CM will continue to offer support to
patient/family, will continue to follow for all discharge planning needs.
Plan; goals of care discussions, potential home with Hospice
[2024-12-17 12:28] VITALS: BP 110/64; PULSE 66; O2SAT 93
[2024-12-17] MEDS: ROBITUSSIN PO ×2 (13:05→18:19)
[2024-12-17 15:00] VITALS: BP 105/60
[2024-12-17] MEDS: LIPITOR 10 MG PO (18:26)
[2024-12-17] MEDS: VITAMIN D3 (cholecalciferol) 25 MCG PO (18:26)
[2024-12-17] MEDS: REMERON 7.5 MG PO (21:11)
[2024-12-17] MEDS: XALATAN OPHTHALMIC SOLUTION 1 DROP BOTH EYES (21:12)
[2024-12-17 23:30] VITALS: BP 108/63
[2024-12-18 06:00] VITALS: BMI 15.3
[2024-12-18 07:00] VITALS: BP 124/58
--- NOTE | 2024-12-18 08:36 | W.PN.HOSP.TC ---
Addendum entered and electronically signed by Juan Diego Parada MD 12/18/24 21:18:
Attending Addendum-
I saw and evaluated the patient. I reviewed the resident�s note and agree with findings and plan as documented in the resident�s note. Sub: patient refusing to eat or participate in therapy. unable to lift head up to speak. extremely lethargic.
barely speaking 'i want to go to rehab to get stronger' refusing hospice. Full 12 point ROS reviewed and negative except as documented Exam: Vitals reviewed in chart GEN-emaciated cachectic appearing NAD heart RRR lungs clear abd soft LE no edema
Neuro lethargic not following commands
Plan:
#Failure to thrive with severe protein/calorie malnutrition
BMI 15.0
DC new Remeron could be contributing to mental state
back and forth with rehab vs hospice- currently wants SNF
daughter/POA wants mother to go to SNF - unrealistic expectations
Poor overall prognosis Hospice appropriate
Extremely poor rehab candidate
#COPD
- not in AE
- cont ipratropium
#Hyperlipidemia: Stable
Continue atorvastatin
# HFpEF
- not in AE
- hold lasix
- echo 3/- ef 55-60%
# HTN
- cont metoprolol and hydralazine
# Overactive bladder
- cont oxybutynin
CODE STATUS: DNR
DVT Prophylaxis: SCDs
Dispo DC to [facility] on Saturday-verified
Time spent coordinating care, review of plan of care with resident, personally reviewed records in EMR, med rec, consults, notes, labs, radiology, d/w nursing and CM � 35 mins
Original Note:
Today's Communication/Plan
-
Discharge to SNF when bed available
Assessment / Plan
Assessment / Plan
Assessment/Plan:
84-year-old female who presented to [facility] with generalized weakness for 1 month. Initially thought to be acute on chronic CHF exacerbation, but after further workup, this was ruled out and adult failure to thrive was more likely.
Today, pt is refusing to eat, drink or cooperate with staff. She wants to go to SNF to leave the hospital, but is currently too weak to move and would not be able to participate in SNF activities. Stated she would like to leave the hospital and go
to SNF, but refuses to eat or drink or participate in her medical care. Goals of care discussion ongoing.
Failure to thrive with severe protein/calorie malnutrition
-BMI 15
-Visibly cachectic
-Appearance of severe depression at temples, oral, buccal, clavicle seen, poor skin turgor
-Food intake less than 50% for meal
-Patient should be encouraged to eat full meals
-No obvious acute decompensation of chronic coronary disease
-Continue mirtazapine is likely component of depression and will help with weight gain
-Pt has decided to pursue SNF working on bed placement
Depression
-dc mirtazapine as increased fatigue may be secondary to new med
History of COPD
-No acute flare
-Aspiration precautions and nebulizers as needed per pulmonology
-Not compliant with home oxygen and not interested in being on oxygen in the hospital
Hyperlipidemia
� Continue atorvastatin 10
HFpEF
-Not in acute exacerbation
-Hold Lasix per cardiology
-Echo on 12/10/2024 left ventricular ejection fraction improved to 55 to 60% from previous 45% on 08/20/2022
Glaucoma
�Continue eyedrops
Overactive bladder
-Continue oxybutynin
CODE STATUS DNR
DVT prophylaxis SCDs
Although previously leaning towards hospice, pt has now decided to pursue SNF. Will try to place today.
Anticipated Discharge: Today
Subjective/Interval History
-
Date of Service: December 18, 2024
Objective Data
-
Vital Signs:
Vital Signs
Temp Pulse Resp BP Pulse Ox
97.0 F 68 16 108/63 96
12/17/24 23:30 12/17/24 23:30 12/17/24 23:30 12/17/24 23:30 12/17/24 23:30
I&O
12/17/24 12/18/24 12/19/24
06:59 06:59 06:59
Intake Total 330 / 330 60 / 60
Balance 330 / 330 60 / 60
Review of Systems
-
History Source: Patient
Constitutional: Reports No Symptoms
Respiratory: Reports No Symptoms
Cardiac: Reports No Symptoms
Abdomen/GI: Reports No Symptoms
Neuro: Reports No Symptoms
Physical Exam
-
General: Cachectic
Respiratory: Clear to Auscultation
Cardiac: Regular Rhythm and S1/S2
GI: Soft, Nontender, Nondistended and Normal Bowel Sounds
Musculoskeletal: No Edema
Neuro: AO x 3
Psych: Agitated
[2024-12-18] MEDS: DITROPAN PO (09:05)
[2024-12-18] MEDS: ROBITUSSIN PO ×3 (10:37→19:01)
[2024-12-18] MEDS: TOPROL XL 25 MG PO ×2 (10:39→21:38)
[2024-12-18] MEDS: ALPHAGAN 0.2% EYE DROPS 1 DROP BOTH EYES ×2 (10:39→21:39)
[2024-12-18] MEDS: DITROPAN 2.5 MG PO (10:39)
[2024-12-18] MEDS: REFRESH EYE DROPS (PF) 1 DROPS BOTH EYES ×2 (10:40→21:38)
[2024-12-18] MEDS: TIMOPTIC 0.5% OPHTHALMIC SOLUTION 1 DROP BOTH EYES ×2 (10:40→21:39)
--- NOTE | 2024-12-18 13:02 | HOSPNOTE ---
Spoke with daughter Nancy and the plan is SNF for rehab. If plans change and home hospice is needed please reach out. CM updated.
--- NOTE | 2024-12-18 14:28 | CM ---
Addendum entered by Tamiko Glasgow 12/18/24 15:06:
[facility]:
Report: [phone]

Original Note:
CM reviewed chart, spoke with daughter who would like patient to go to rehab, not interested in hospice at this time. [facility] able to accept Saturday, daughter will provide transportation. Patient will need updated PT/OT for insurance auth. CM
will continue to follow for all discharge planning needs.
Plan; [facility] Saturday, will need auth, daughter will transport
Kelsea NPI: [phone]
Dr. Stewart: [phone]
[2024-12-18 15:00] VITALS: BP 90/54
--- NOTE | 2024-12-18 17:06 | WOUNDNOTE ---
WO RN note: t/c CM dept abd spoke with Karly Pat re: recommend air mattress for patient at SNF; patient has sacral pressure injury. Anaya stated she will put a note for CM for the weekend. 'Air mattress' is already written in the discharge
instructions. Also attempted to call [facility] [phone], no answer.
[2024-12-18] MEDS: VITAMIN D3 (cholecalciferol) PO (19:02)
[2024-12-18] MEDS: LIPITOR PO (19:02)
[2024-12-18] MEDS: ROBITUSSIN 100 MG PO (21:38)
[2024-12-18] MEDS: XALATAN OPHTHALMIC SOLUTION 1 DROP BOTH EYES (21:39)
[2024-12-18 23:30] VITALS: BP 103/58
[2024-12-19 05:46] VITALS: BMI 15.4
[2024-12-19 07:30] VITALS: BP 113/60
[2024-12-19] MEDS: TOPROL XL 25 MG PO ×2 (10:03→20:47)
[2024-12-19] MEDS: REFRESH EYE DROPS (PF) 1 DROPS BOTH EYES ×2 (10:03→20:47)
[2024-12-19] MEDS: DITROPAN 2.5 MG PO (10:03)
[2024-12-19] MEDS: TIMOPTIC 0.5% OPHTHALMIC SOLUTION 1 DROP BOTH EYES ×2 (10:04→20:48)
[2024-12-19] MEDS: ALPHAGAN 0.2% EYE DROPS 1 DROP BOTH EYES ×2 (10:04→20:48)
[2024-12-19] MEDS: ROBITUSSIN PO ×4 (10:05→21:36)
--- NOTE | 2024-12-19 11:50 | W.PN.HOSP.TC ---
Today's Communication/Plan
-
Monitor vital signs see plan
SNF pending
site manager aware
Encourage p.o. intake
pt/ot
Assessment / Plan
Assessment / Plan
Assessment/Plan:
84-year-old female who presented to [facility] with generalized weakness for 1 month. Initially thought to be acute on chronic CHF exacerbation, but after further workup, this was ruled out and adult failure to thrive was more likely.
Today, pt is refusing to eat, drink or cooperate with staff. She wants to go to SNF to leave the hospital, but is currently too weak to move and would not be able to participate in SNF activities. Stated she would like to leave the hospital and go
to SNF, but refuses to eat or drink or participate in her medical care. Goals of care discussion ongoing.
Failure to thrive with severe protein/calorie malnutrition
-BMI 15
-Visibly cachectic
-Appearance of severe depression at temples, oral, buccal, clavicle seen, poor skin turgor
-Food intake less than 50% for meal
-Patient should be encouraged to eat full meals
-No obvious acute decompensation of chronic coronary disease
-Continue mirtazapine is likely component of depression and will help with weight gain
-Pt has decided to pursue SNF working on bed placement
Depression
-dc mirtazapine as increased fatigue may be secondary to new med
History of COPD
-No acute flare
-Aspiration precautions and nebulizers as needed per pulmonology
-Not compliant with home oxygen and not interested in being on oxygen in the hospital
Hyperlipidemia
� Continue atorvastatin 10
HFpEF
-Not in acute exacerbation
-Hold Lasix per cardiology
-Echo on 12/10/2024 left ventricular ejection fraction improved to 55 to 60% from previous 45% on 08/20/2022
Glaucoma
�Continue eyedrops
Overactive bladder
-Continue oxybutynin
CODE STATUS DNR
DVT prophylaxis SCDs
Although previously leaning towards hospice, pt has now decided to pursue SNF. Per telephonic nurse case manager has a bed on 12/20. Discussed with telephonic nurse case manager today who will look into it.
General: Cachectic
Respiratory: Clear to Auscultation
Cardiac: Regular Rhythm and S1/S2
GI: Soft, Nontender, Nondistended and Normal Bowel Sounds
Musculoskeletal: No Edema
Neuro: AO x 3
Psych: Agitated
Anticipated Discharge: Within 24 hours
Subjective/Interval History
-
Date of Service: December 19, 2024
Frustrated
Objective Data
-
Vital Signs:
Vital Signs
Temp Pulse Resp BP Pulse Ox
98.7 F 72 16 113/60 96
12/19/24 07:30 12/19/24 10:03 12/19/24 07:30 12/19/24 10:03 12/19/24 07:30
I&O
12/18/24 12/19/24 12/20/24
06:59 06:59 06:59
Intake Total 60 / 540 480 / 480
Balance 60 / 540 480 / 480
[2024-12-19 15:00] VITALS: BP 90/55
[2024-12-19] MEDS: MIRALAX 17 GRAMS PO (15:01)
[2024-12-19] MEDS: COLACE 100 MG PO ×2 (15:01→20:47)
[2024-12-19] MEDS: VITAMIN D3 (cholecalciferol) 25 MCG PO (17:58)
[2024-12-19] MEDS: LIPITOR 10 MG PO (17:59)
[2024-12-19] MEDS: XALATAN OPHTHALMIC SOLUTION 1 DROP BOTH EYES (20:48)
[2024-12-19 23:00] VITALS: BP 134/69
[2024-12-20 06:00] VITALS: BMI 14.8
[2024-12-20] MEDS: TYLENOL 1000 MG PO (06:07)
--- NOTE | 2024-12-20 06:27 | PTCARENOTE ---
Pt woke up yelling stating she is in pain on her buttocks. Pt turned Q2 throughout HS. Pt provided tylenol for pain, dressings changed. Pt called daughter with complaints, daughter called RN. RN educated family and pt that tylenol given for pain and
repositioned for comfort. Pt stating, 'I need help but I dont know with what.' RN provided therapeutic communication and offered help with needs, no needs provided by pt. Pt resting comfortably.
[2024-12-20 07:30] VITALS: BP 116/68
[2024-12-20] MEDS: MIRALAX 17 GRAMS PO (09:22)
[2024-12-20] MEDS: COLACE 100 MG PO ×2 (09:22→20:51)
[2024-12-20] MEDS: TOPROL XL 25 MG PO (09:22)
[2024-12-20] MEDS: REFRESH EYE DROPS (PF) 1 DROPS BOTH EYES ×2 (09:23→20:53)
[2024-12-20] MEDS: ROBITUSSIN PO ×4 (09:23→20:54)
[2024-12-20] MEDS: ALPHAGAN 0.2% EYE DROPS 1 DROP BOTH EYES ×2 (09:24→20:54)
[2024-12-20] MEDS: TIMOPTIC 0.5% OPHTHALMIC SOLUTION 1 DROP BOTH EYES ×2 (09:24→20:55)
[2024-12-20] MEDS: DITROPAN 2.5 MG PO (09:26)
--- NOTE | 2024-12-20 11:17 | W.PN.HOSP.TC ---
Today's Communication/Plan
-
monitor vitals
see plan
laxatives
discharge planning;CM aware
Assessment / Plan
Assessment / Plan
Assessment/Plan:
84-year-old female who presented to [facility] with generalized weakness for 1 month. Initially thought to be acute on chronic CHF exacerbation, but after further workup, this was ruled out and adult failure to thrive was more likely.
Today, pt is refusing to eat, drink or cooperate with staff. She wants to go to SNF to leave the hospital, but is currently too weak to move and would not be able to participate in SNF activities. Stated she would like to leave the hospital and go
to SNF, but refuses to eat or drink or participate in her medical care. Goals of care discussion ongoing.
Failure to thrive with severe protein/calorie malnutrition
-BMI 15
-Visibly cachectic
-Appearance of severe depression at temples, oral, buccal, clavicle seen, poor skin turgor
-Food intake less than 50% for meal
-Patient should be encouraged to eat full meals
-No obvious acute decompensation of chronic coronary disease
-Continue mirtazapine is likely component of depression and will help with weight gain
-Pt has decided to pursue SNF working on bed placement
Depression
-dc mirtazapine as increased fatigue may be secondary to new med
Constipation
Reported has not had bowel movement throughout hospitalization
Started MiraLAX, Colace
If no improvement then will try suppository
History of COPD
-No acute flare
-Aspiration precautions and nebulizers as needed per pulmonology
-Not compliant with home oxygen and not interested in being on oxygen in the hospital
Hyperlipidemia
� Continue atorvastatin 10
HFpEF
-Not in acute exacerbation
-Hold Lasix per cardiology
-Echo on 12/10/2024 left ventricular ejection fraction improved to 55 to 60% from previous 45% on 08/20/2022
Glaucoma
�Continue eyedrops
Overactive bladder
-Continue oxybutynin
CODE STATUS DNR
DVT prophylaxis SCDs
Although previously leaning towards hospice, pt has now decided to pursue SNF. Per case packer and sealer has a bed on 12/20. Discussed with case packer and sealer 12/19 and 12/20 who will look into it.
General: Cachectic
Respiratory: Clear to Auscultation
Cardiac: Regular Rhythm and S1/S2
GI: Soft, Nontender, Nondistended and Normal Bowel Sounds
Musculoskeletal: No Edema
Neuro: AO x 3
Psych: Agitated
Anticipated Discharge: Today
Subjective/Interval History
-
Date of Service: December 20, 2024
denies pain
Objective Data
-
Vital Signs:
Vital Signs
Temp Pulse Resp BP Pulse Ox
97.6 F 69 14 116/68 98
12/20/24 07:30 12/20/24 09:22 12/20/24 07:30 12/20/24 09:22 12/20/24 07:30
I&O
12/19/24 12/20/24 12/21/24
06:59 06:59 06:59
Intake Total 480 / 480 960 / 960
Balance 480 / 480 960 / 960
--- NOTE | 2024-12-20 12:06 | CM ---
JARRELL spoke with . Pt currently pending a BM then dc.
Chart reviewed. Discussed anticipated dc to [facility]. Last PT/OT notes from 12/18.
Pt will require repeat PT and OT within 24hrs of dc for insurance auth- CM rec'd to have pt seen today.
Spoke with [facility]- they are able to offer a bed pending the above. MD aware.
CM/SW will continue to follow to ensure a safe and timely dc.
[2024-12-20 15:00] VITALS: BP 114/60
[2024-12-20] MEDS: DULCOLAX 5 MG PO (16:39)
[2024-12-20] MEDS: LIPITOR 10 MG PO (17:24)
[2024-12-20] MEDS: VITAMIN D3 (cholecalciferol) 25 MCG PO (17:24)
[2024-12-20] MEDS: TOPROL XL PO (20:51)
[2024-12-20] MEDS: XALATAN OPHTHALMIC SOLUTION 1 DROP BOTH EYES (20:55)
[2024-12-20 23:54] VITALS: BP 125/56
[2024-12-21 06:35] VITALS: BMI 14.8
[2024-12-21 08:30] VITALS: BP 95/77
[2024-12-21] MEDS: COLACE 100 MG PO (08:35)
[2024-12-21] MEDS: REFRESH EYE DROPS (PF) 1 DROPS BOTH EYES (08:35)
[2024-12-21] MEDS: ALPHAGAN 0.2% EYE DROPS 1 DROP BOTH EYES (08:36)
[2024-12-21] MEDS: MIRALAX 17 GRAMS PO (08:36)
[2024-12-21] MEDS: TIMOPTIC 0.5% OPHTHALMIC SOLUTION 1 DROP BOTH EYES (08:36)
[2024-12-21] MEDS: TOPROL XL PO (08:37)
[2024-12-21] MEDS: ROBITUSSIN 100 MG PO ×3 (08:37→18:17)
--- NOTE | 2024-12-21 09:27 | W.PN.HOSP.TC ---
Today's Communication/Plan
-
Discharge to SNF today
Assessment / Plan
Assessment / Plan
Assessment/Plan:
84-year-old female who presented to [facility] with generalized weakness for 1 month. Initially thought to be acute on chronic CHF exacerbation, but after further workup, this was ruled out and adult failure to thrive was more likely.
Today, pt is refusing to eat, drink or cooperate with staff. She wants to go to SNF to leave the hospital, but is currently too weak to move and would not be able to participate in SNF activities. Stated she would like to leave the hospital and go
to SNF, but refuses to eat or drink or participate in her medical care. Goals of care discussion ongoing. HR this am elevated around 8:30 while pt was moving around trying to reposition. Rechecked HR 10 min later 83.
Failure to thrive with severe protein/calorie malnutrition
-BMI 15
-Visibly cachectic
-Appearance of severe depression at temples, oral, buccal, clavicle seen, poor skin turgor
-Food intake less than 50% for meal
-Patient should be encouraged to eat full meals
-No obvious acute decompensation of chronic coronary disease
-Pt has decided to pursue SNF working on bed placement
Depression
-mirtazapine was dc as increased fatigue may be secondary to new med
Constipation
-Reported has not had bowel movement throughout hospitalization
-Started MiraLAX, Colace
-If no improvement then will try suppository
History of COPD
-No acute flare
-Aspiration precautions and nebulizers as needed per pulmonology
-Not compliant with home oxygen and not interested in being on oxygen in the hospital
Hyperlipidemia
� Continue atorvastatin 10
HFpEF
-Not in acute exacerbation
-Hold Lasix per cardiology
-Echo on 12/10/2024 left ventricular ejection fraction improved to 55 to 60% from previous 45% on 08/20/2022
HTN
-Metoprolol 25 BID with prn hydralazine for sbp >160
-Today BP low. Hold am dose metoprolol
Glaucoma
�Continue eyedrops
Overactive bladder
-Continue oxybutynin
CODE STATUS DNR
DVT prophylaxis SCDs
Although previously leaning towards hospice, pt has now decided to pursue SNF. Per director of casework department has a bed on 12/20. Discussed with director of casework department 12/19 and 12/20 who will look into it.
Anticipated Discharge: Today
Subjective/Interval History
-
Date of Service: December 21, 2024
In a good mood today. Willing to eat and excited to leave the hospital.
Objective Data
-
Vital Signs:
Vital Signs
Temp Pulse Resp BP Pulse Ox
97.3 F 61 14 125/56 93
12/20/24 23:54 12/20/24 23:54 12/20/24 23:54 12/20/24 23:54 12/20/24 23:54
I&O
12/20/24 12/21/24 12/22/24
06:59 06:59 06:59
Intake Total 960 / 960 480 / 480
Balance 960 / 960 480 / 480
Review of Systems
-
History Source: Patient
Respiratory: Reports No Symptoms
Cardiac: Reports No Symptoms
Abdomen/GI: Reports No Symptoms
Musculoskeletal: Reports No Symptoms
Neuro: Reports No Symptoms
Physical Exam
-
General: No Apparent Distress, Conversant and Cachectic
Respiratory: Clear to Auscultation
Cardiac: Regular Rhythm and S1/S2
GI: Soft, Nontender, Nondistended and Normal Bowel Sounds
Musculoskeletal: No Edema
Skin: Warm and Dry
Neuro: AO x 3
Psych: Calm
[2024-12-21 09:54] VITALS: BP 86/50
[2024-12-21 09:57] VITALS: BP 86/50
[2024-12-21] MEDS: DULCOLAX 10 MG RECTAL (14:27)
[2024-12-21 15:45] VITALS: BP 98/53
--- NOTE | 2024-12-21 16:41 | CM ---
Addendum entered by Tamiko Glasgow 12/21/24 16:57:
Spoke with Dung from [employer], auth approved 12/21-12/25, auth #[id number], ambulance auth approved for 3 days #[id number], call updates to [phone]. Karly liaison at [facility] updated.
Original Note:
CM reviewed chart, patient seen bedside with son in law, discussed plan for discharge today to [facility]. IMM reviewed verbally, patient agreeable to discharge, provided with copy, placed in chart. Call to [employer] to obtain auth, spoke with Dung,
will call CM back within 40 minutes to get auth. Patient will require ambulance transport. [facility] updated on discharge. CM will continue to follow for all discharge planning needs.
Plan; [facility], awaiting auth, will require ambulance transport, 7:00 p.m. transport time
[facility]:
Report: [phone]
[2024-12-21] MEDS: LIPITOR 10 MG PO (18:16)
[2024-12-21] MEDS: VITAMIN D3 (cholecalciferol) 25 MCG PO (18:16)
--- NOTE | 2024-12-21 19:27 | W.DCSUMMARY ---
Documented by User: Jessica Woodson MD, Resident 12/21/24 19:28
Discharge Summary
Discharge Data
Date of Admission: 12/09/24
Date of Discharge: 12/21/24
-
Pending Results: No
Hospital Course
Primary diagnosis:
Failure to thrive with severe protein/calorie malnutrition
Secondary diagnosis:
COPD
HFpEF
Hyperlipidemia
Glaucoma
Overactive bladder
Hospital course:
84-year-old female with past medical history of HFrEF, COPD, hypertension, hyperlipidemia, CKD stage III, depression, glaucoma, back pain presented to the ED on 12/09/24 due to generalized weakness and progressive decline over past week. Upon
initial exam, crackles were heard, patient hypoxemic 84% on room air, cephalization found on chest x-ray and proBNP and 3800. Patient was started on IV Lasix, cardiology consulted and admitted to [facility] for CHF exacerbation and failure
to thrive. Echo revealed left ventricular ejection fraction is 55 to 60%, increased from prior 45 to 50% on 02/05/2023. Cardiology believe clinical presentation more consistent consistent with failure to thrive. They discontinued diuresis and
encourage p.o. distal intake. Noted her cardiac BNP at 3800 was lowest that it is ever been. GDMT was limited due to labile blood pressure and did not tolerate Jardiance secondary to significantly weight lost in the past. Abdomen and pelvis CT
was done to evaluate for failure to thrive and bloating. No acute pathology was found. Pulmonology was consulted for history of COPD. Patient respiratory status stabilized after O2 in the ED, however later refusing it as tubes are taking behind
patient's ears. Stabilized on room air thereafter. Pulmonology recommended continuations of home inhalers of bronchospastic and nebulizers as needed. Depression was considered as a contributing factor for the patient's failure to thrive and
started on mirtazapine to aid in weight gain as well. Later discontinued thinking it may have been contributing to fatigue. Pts demeanor did not change much after discontinuing it will try again after discharge.
Today, patient is clinically stable for discharge. Interested in SNF rehab to regain strength. Encourage PO intake, discontinue her diuretics per cardiology. Restart mirtazapine in the outpatient setting and titrate up as able.
Discharge Plan
-
Patient Disposition: Residential/SNF
Discharge Diagnosis/Procedures: Failure to thrive
Condition: Fair
Diet: No restrictions
Activity: As tolerated
Driving Restrictions: As prior to admission
Bathing Restrictions: None
Activity Restrictions/Additional Instructions:
Wound Care Instructions
Sacrum, bilateral ischium-clean with saline, silicone border foam, change q 3 days and as needed for loosened dressing.
Air mattress
Turning schedule
Elevate heels off bed; soft heel relief boots as tolerated; use pillow/air chair cushion to off load heels while boots off.
Pressure redistributing chair cushion (i.e. Roho, Air chair cushion)
Follow up with wound care clinican or at wound care center call for an appointment.
Instructions: *PCP/Other Stave Bolt Equalizer Heart Failure Instructions
Referrals:
Jessica Woodson MD, Resident [Family Practice Resident Year1] - in less than 1 week
UNKNOWN - PT DOES,NOT KNOW [Family Provider] -
Additional Discharge Medication Instructions: Use fleet enema tomorrow if still unable to have a bowel movement
Encourage oral intake
Prescriptions:
New
mineral oil [Kgsou-Vw-Rmu Enema (min oil)] Enema
133 ml FL ONCE Qty: 133 0RF
mirtazapine 7.5 mg tablet
7.5 mg PO HS Qty: 30 0RF
Continued
acetaminophen [Tylenol Extra Strength] 500 MG tablet
1,000 mg PO Q6HPRN PRN (Reason: MILD PAIN)
Prolia 60 MG/ML syringe
60 mg SQ [id number]
Patient Comments:
3/5/25: pt last received in August 2024
atorvastatin 10 MG tablet
10 mg PO QPM
cholecalciferol (vitamin D3) 1,000 UNITS tablet
1,000 units PO QPM
nitroglycerin 0.4 MG tablet, sublingual
0.4 mg sublingual [id number] PRN (Reason: CP, SOB) Qty: 10 0RF
metoprolol succinate 25 MG tablet extended release 24 hr
25 mg PO BID Qty: 60 0RF
timolol maleate 0.5 % drops
1 drp BOTH EYES BID
travoprost 0.004 % Drops
1 drp BOTH EYES HS
ipratropium bromide 42 mcg (0.06 %) spray,non-aerosol
1 spray INTRANASAL Q4HPRN PRN (Reason: runny nose)
hydralazine 25 mg tablet
25 mg PO TIDPRN PRN (Reason: sbp>160)
brimonidine 0.2 % Drops
1 drp BOTH EYES BID
oxybutynin chloride 5 mg Tablet Extended Release 24hr
5 mg PO DAILY@1000
Mucinex DM 30-600 mg Tablet Extended Release 12 Hr
1 tab PO Q12H
Systane Complete PF 0.6 % Drops
1 drp ophthalmic (eye) BID
Rx Instructions:
BOTH EYES
Discharge Orders:
Discharge Patient (As Directed); Ordered 12/21/24
Ordered By: Jessica Woodson
Discharge Date and Time
Discharge Date/Time: 12/21/24 19:32
Print Language: CHINESE

Documented by User: Andres Ley DO 12/22/24 09:51
Discharge Summary
Discharge Data
Date of Admission: 12/09/24
Date of Discharge: 12/21/24
Total time spent discharging patient (in min): 37
Discharge Plan
-
Patient Disposition: Residential/SNF
Discharge Diagnosis/Procedures: Failure to thrive
Condition: Fair
Diet: No restrictions
Activity: As tolerated
Driving Restrictions: As prior to admission
Bathing Restrictions: None
Activity Restrictions/Additional Instructions:
Wound Care Instructions
Sacrum, bilateral ischium-clean with saline, silicone border foam, change q 3 days and as needed for loosened dressing.
Air mattress
Turning schedule
Elevate heels off bed; soft heel relief boots as tolerated; use pillow/air chair cushion to off load heels while boots off.
Pressure redistributing chair cushion (i.e. Roho, Air chair cushion)
Follow up with wound care clinican or at wound care center call for an appointment.
Instructions: *PCP/Other Stave Bolt Equalizer Heart Failure Instructions
Referrals:
Jessica Woodson MD, Resident [Family Practice Resident Year1] - in less than 1 week
UNKNOWN - PT DOES,NOT KNOW [Family Provider] -
Additional Discharge Medication Instructions: Use fleet enema tomorrow if still unable to have a bowel movement
Encourage oral intake
Prescriptions:
New
mineral oil [Qtual-Zw-Qiw Enema (min oil)] Enema
133 ml FL ONCE Qty: 133 0RF
mirtazapine 7.5 mg tablet
7.5 mg PO HS Qty: 30 0RF
Continued
acetaminophen [Tylenol Extra Strength] 500 MG tablet
1,000 mg PO Q6HPRN PRN (Reason: MILD PAIN)
Prolia 60 MG/ML syringe
60 mg SQ [id number]
Patient Comments:
12/09/24: pt last received in August 2024
atorvastatin 10 MG tablet
10 mg PO QPM
cholecalciferol (vitamin D3) 1,000 UNITS tablet
1,000 units PO QPM
nitroglycerin 0.4 MG tablet, sublingual
0.4 mg sublingual [id number] PRN (Reason: CP, SOB) Qty: 10 0RF
metoprolol succinate 25 MG tablet extended release 24 hr
25 mg PO BID Qty: 60 0RF
timolol maleate 0.5 % drops
1 drp BOTH EYES BID
travoprost 0.004 % Drops
1 drp BOTH EYES HS
ipratropium bromide 42 mcg (0.06 %) spray,non-aerosol
1 spray INTRANASAL Q4HPRN PRN (Reason: runny nose)
hydralazine 25 mg tablet
25 mg PO TIDPRN PRN (Reason: sbp>160)
brimonidine 0.2 % Drops
1 drp BOTH EYES BID
oxybutynin chloride 5 mg Tablet Extended Release 24hr
5 mg PO DAILY@1000
Mucinex DM 30-600 mg Tablet Extended Release 12 Hr
1 tab PO Q12H
Systane Complete PF 0.6 % Drops
1 drp ophthalmic (eye) BID
Rx Instructions:
BOTH EYES
Discharge Orders:
Discharge Patient (As Directed); Ordered 12/21/24
Ordered By: Jessica Woodson
Discharge Date and Time
Discharge Date/Time: 12/21/24 19:32
Print Language: CHINESE
== END 2024-12-21 19:32 | DRG 640 ==
LOC: 4 WEST ACU 19:06
PROVIDERS: Physician Assistant; ADMITTING PHYSICIAN Internal Medicine; ATTENDING PHYSICIAN Internal Medicine; CONSULT PHYSICIAN Internal Medicine; EMERGENCY PHYSICIAN Emergency Medicine; OTHER PHYSICIAN Internal Medicine
DX: R62.7 Adult failure to thrive (principal); E43 Unspecified severe protein-calorie malnutrition; J96.01 Acute respiratory failure with hypoxia; I13.0 Hypertensive heart and chronic kidney disease with heart failure and stage 1 through stage 4 chronic kidney disease, or unspecified chronic kidney disease; I50.42 Chronic combined systolic (congestive) and diastolic (congestive) heart failure; Z68.1 Body mass index [BMI] 19.9 or less, adult; R64 Cachexia; J93.9 Pneumothorax, unspecified; I42.8 Other cardiomyopathies; F32.A Depression, unspecified; N18.31 Chronic kidney disease, stage 3a; Z87.891 Personal history of nicotine dependence; Z11.52 Encounter for screening for COVID-19; J44.9 Chronic obstructive pulmonary disease, unspecified; E78.00 Pure hypercholesterolemia, unspecified; H40.9 Unspecified glaucoma; Z66 Do not resuscitate; I34.0 Nonrheumatic mitral (valve) insufficiency; L89.152 Pressure ulcer of sacral region, stage 2; L89.621 Pressure ulcer of left heel, stage 1; L89.611 Pressure ulcer of right heel, stage 1; M81.0 Age-related osteoporosis without current pathological fracture; M40.202 Unspecified kyphosis, cervical region; N32.81 Overactive bladder; K59.00 Constipation, unspecified; M54.9 Dorsalgia, unspecified; E86.0 Dehydration; I34.81 Nonrheumatic mitral (valve) annulus calcification
CPT/HCPCS: 71046; 74176; 80053; 81003; 81015; 83735; 83880; 84100; 84443; 84484; 85025; 85027; 87086; 87502; 87811; 93005; 93306; 94640; 96360; 97110; 97116; 97163; 97167; 97530; 97535; 99285